=== PATIENT | male | born 1980 | race Caucasian/White ===

== ENCOUNTER 2022-08-16 22:43 | Emergency (ER) | payer MEDICAID, SELFPAY ==
[2022-08-16 22:46] VITALS: BP 117/77; PULSE 115; RESP 13; TEMP 37.1; O2SAT 92
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
[2022-08-16] MEDS: Normal Saline 1,000 ML 1000 ML IV (23:16)
[2022-08-16 23:20] LABS: Abs Immature Grans 0.02 10^3/uL (0.0-0.06); Absolute Basophil Count 0.04 10^3/uL (0.0-0.2); Absolute Eosinophil Count 0.35 10^3/uL (0.0-0.7); Absolute Lymphocyte Count 1.65 10^3/uL (1.2-3.4); Absolute Monocyte Count 0.73 10^3/uL (0.1-0.8); Absolute Neutrophil Count 5.09 10^3/uL (1.2-6.7); Basophils % 0.5; Eosinophils % 4.4; HCT 44.7 % (40.0-50.0); HGB 15.5 g/dL (13.5-17.5); Immature Grans % 0.3; Lymphocytes % 20.9; MCH 30.4 pg (27.0-33.0); MCHC 34.7 % (32.0-36.0); MCV 88 fL (80-95); MPV 9.2 fL (8.0-11.0); Monocytes % 9.3; Neutrophils % 64.6; Platelet Count 234 10^3/uL (130-400); RDW 11.5 % (11.8-14.1); RDW-SD 37.1 fL; WBC 7.88 10^3/uL (4.4-10.8)
[2022-08-16 23:35] LABS: *AMPHETAMINES SCREEN URINE Negative (Negative); *BARBITURATES SCREEN URINE Negative (Negative); *BENZODIAZEPINES SCREEN URINE Negative (Negative); ALT 48 U/L (16-63); AST 109 U/L (15-37); Albumin 3.5 g/dL (3.4-5.0); Alkaline Phosphatase 145 U/L (46-116); Anion Gap 9.9 mmol/L (3-11); BUN 8 mg/dL (7-18); Bilirubin, Total 0.5 mg/dL (0.2-1.0); CO2 23.1 mmol/L (21.0-32.0); Calcium 8.9 mg/dL (8.5-10.1); Cannabinoids THC Negative (Negative); Chloride 105 mmol/L (98-107); Cocaine Screen,Urine Negative (Negative); ETHANOL BLOOD 264.8 mg/dL (<10); Estimated GFR 96.97 (mL/min/1.73m2); Glucose 188 mg/dL (74-106); METHADONE URINE SCREEN Negative (Negative); OPIATES URINE SCREEN Negative (Negative); Potassium 3.4 mmol/L (3.5-5.1); Sodium 138 mmol/L (136-145); Total Protein 7.7 g/dL (6.4-8.2)
[2022-08-16 23:36] LABS: Tricyclic Antidepressants Negative (Negative)
== END 2022-08-17 00:04 | disposition home or self-care (01) ==
PROVIDERS: Emergency Provider Emergency Medicine
DX: F10.129 Alcohol abuse with intoxication, unspecified (principal); Y90.8 Blood alcohol level of 240 mg/100 ml or more
CPT/HCPCS: 80053; 80307; 96360; 99284; 80320; 85025; 99283

== ENCOUNTER 2022-08-17 20:45 | Emergency (ER) | payer MEDICAID, SELFPAY ==
[2022-08-17 21:09] VITALS: BP 171/106; PULSE 70; RESP 18; TEMP 36.7; O2SAT 98
--- NOTE | 2022-08-17 21:50 | ED.GENADUL_ITS ---
Discharge Plan Disposition Patient Disposition: STILL A PATIENT Condition: Stable Discharge Details Chief Complaint: Suicide-Atempt Clinical Impression: Suicidal ideation Primary Care Provider: Unknown,Unknown ED Provider: Jw Barakat Home Meds and New Rx's Prescriptions: No Action risperidone [Risperdal] 1 mg Tablet 1 mg Rx Instructions: uNSURE OF DOSE Medical Decision Making 41 yo male who was seen in the ED last night for alcohol intoxication comes in today with complaint of thoughts of self harm. He hasn't had anything to drink today and states he has not used drugs but states he doesn't feel right in his head and has had thoughts of self harm, denies attempting to harm himself. He has not taken his gabapentin or risperidone in a week or longer per patient. He arrives stable, caox4 with clear speech, normal gait, clinically sober. No focal deficits on exam. He has no findings on his history or exam to suggest underlying medical process to his depression/si, will have mental health evaluate pt evaluated by [facility], is going to be voluntary for psych placement Differential Diagnosis Differential Diagnosis: depression,si Lab Data Lab results reviewed: Yes I reviewed the patient's lab results. HPI General Mode of arrival: ambulatory . Date/Time Provider Initiated Documentation: 08/17/22 20:50 . Limitations to Documentation: no limitations . Information obtained by: patient . History of Present Illness 41 year old M presents to the emergency department with the chief complaint of depression/si, described as moderate, Patient started experiencing this day(s) (1) and it has been constant. No relieving factors improve symptom(s), No exacerbating factors reported . Patient notes denies chest pain, fever/chills and nausea/vomiting. Patient did receive the following treatments prior to arri sarah, none Related Data Home Medications Medication Instructions Recorded Confirmed risperidone 1 mg tablet (Risperdal) 1 mg 08/16/22 Allergies Allergy/AdvReac Type Severity Reaction Status Date / Time No Known Allergies Allergy Unverified 08/16/22 22:54 General Stated Complaint: Suicide-Atempt JENISE: 2 Review of Systems All systems reviewed & are unremarkable except as noted in HPI and below Constitutional Constitutional: Denies chills, Denies fever(s) and Denies weakness Cardiovascular Cardiovascular: Denies chest pain and Denies dyspnea Respiratory Respiratory: Denies cough and Denies dyspnea Gastrointestinal Gastrointestinal: Denies abdominal pain, Denies nausea and Denies vomiting Musculoskeletal Musculoskeletal: Denies joint swelling Integumentary/Breasts Skin/Breast: Denies rash Neurologic Neurologic: Denies weakness PFSH All Active Problems (Updated 08/18/22 @ 00:55 by Jw Barakat MD) Suicidal ideation (Acute) Social History Smoking/Tobacco Use Status: Current every day Tobacco Type: cigarettes Smoking risk assessment performed?: Yes Alcohol Intake: current Alcohol Intake frequency: 3 or more drinks per day Substance use type: does not use Details: Denies Do you feel safe at home: Yes Do you feel safe in your relationship?: Yes Exam Const General: no acute distress Orientation: alert HENMT Head: normal to inspection Ears: external ears normal General nose exam: external nose normal Mouth: moist mucous membranes Eyes General: appearance normal, both eyes and all related structures Neck Neck: normal visual inspection Resp Effort & Inspection: normal respiratory effort and able to speak in complete sentences Cardio Rate: regular rate Skin General skin exam: no rashes or lesions noted Neuro General: patient alert and patient oriented x3 Extrem General: normal to inspection Psych Appearance: well kempt Course Vital Signs Vital signs: Vital Signs Temperature 36.7 C 08/17/22 21:09 Pulse 70 08/17/22 21:09 Respiratory Rate 18 08/17/22 21:09 Blood Pressure 171/106 H 08/17/22 21:09 Pulse Oximetry 98 08/17/22 21:09 Temperature 36.7 C 08/17/22 21:09 Pulse 70 08/17/22 21:09 Respiratory Rate 18 08/17/22 21:09 Respiratory Effort 08/17/22 21:14 Blood Pressure 171/106 H 08/17/22 21:09 Blood Pressure Position Sitting 08/17/22 21:09 Pulse Oximetry 98 08/17/22 21:09 Oxygen Delivery Method Room Air 08/17/22 21:09 Oxygen Flow Rate 0 08/17/22 21:09 Pain Level 0 08/17/22 21:09 PAWSS Have you Been Recently Intoxicated or Drunk Within the Last 30 days?: Yes Have you Ever Experienced Previous Episodes of Alcohol Withdrawal?: No Have you ever Experienced Withdrawal Seizures?: No Have you ever Experienced Delirium Tremens(DT)s?: No Have you ever undergone Alcohol Rehabilitation Treatment (i.e, inpt ot outpatient treatment programs)?: Yes Have you ever Experienced Blackouts?: Yes Have you ever Combined Alcohol with other Downers within the last 90 days?: Yes Have you ever Combined Alcohol with any other Substance of Abuse during the last 90 days?: Yes Positive Blood Alcohol level on Presentation? [PCS.BAL]: Yes Evidence of Increased Autonomic Activity (i.e. HR>120, tremor, sweating, agitation, nausea)?: Yes Result: 7
[2022-08-17 22:09] LABS: Abs Immature Grans 0.02 10^3/uL (0.0-0.06); Absolute Basophil Count 0.05 10^3/uL (0.0-0.2); Absolute Eosinophil Count 0.12 10^3/uL (0.0-0.7); Absolute Lymphocyte Count 1.34 10^3/uL (1.2-3.4); Absolute Neutrophil Count 7.25 10^3/uL (1.2-6.7); Basophils % 0.5; Eosinophils % 1.3; HCT 48.4 % (40.0-50.0); HGB 16.2 g/dL (13.5-17.5); Immature Grans % 0.2; Lymphocytes % 14.3; MCHC 33.5 % (32.0-36.0); MCV 90 fL (80-95); Monocytes % 6.4; Neutrophils % 77.3; Platelet Count 238 10^3/uL (130-400); RDW 11.7 % (11.8-14.1); RDW-SD 38.4 fL; WBC 9.38 10^3/uL (4.4-10.8)
[2022-08-17 22:35] LABS: ALT 39 U/L (16-63); AST 75 U/L (15-37); Alkaline Phosphatase 134 U/L (46-116); Anion Gap 8.2 mmol/L (3-11); BUN 11 mg/dL (7-18); Bilirubin, Total 1.4 mg/dL (0.2-1.0); CO2 28.8 mmol/L (21.0-32.0); CREATININE 0.8 mg/dL (0.70-1.30); Calcium 9.1 mg/dL (8.5-10.1); Chloride 104 mmol/L (98-107); Estimated GFR 114.02 (mL/min/1.73m2); Glucose 98 mg/dL (74-106); Potassium 3.3 mmol/L (3.5-5.1); Sodium 141 mmol/L (136-145); TSH (W/Ref FT4) 2.46 uIU/mL (0.36-3.74); Total Protein 8.5 g/dL (6.4-8.2)
[2022-08-17] MEDS: diazePAM 5 MG TAB PO (22:41)
[2022-08-17 22:47] LABS: Salicylate < 2.8 mg/dL (<2.8)
[2022-08-17 22:49] LABS: Acetaminophen < 2 ug/mL (10-30)
[2022-08-17 22:53] LABS: ETHANOL BLOOD < 3.0 mg/dL (<10)
[2022-08-18] VITALS (8 sets, daily range): BP systolic 133–155; BP diastolic 68–88; PULSE 73–89; RESP 17–20; TEMP 36.4–37.3; O2SAT 92–100
[2022-08-18] MEDS: Ibuprofen 600 MG TAB PO ×2 (01:25→12:16)
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
[2022-08-18] MEDS: diazePAM 5 MG TAB PO (07:59)
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
[2022-08-18 10:55] LABS: Bilirubin Negative (Negative); Blood Negative (Negative); Clarity Clear (Clear); Glucose Negative (Negative); Ketones Negative (Negative); Leukocyte Esterase Negative (Negative); Nitrite Negative (Negative); Specific Gravity 1.025 (1.005-1.025); Urobilinogen 0.2 EU/dL (Up TO 0.2)
[2022-08-18 11:07] LABS: *AMPHETAMINES SCREEN URINE Negative (Negative); *BARBITURATES SCREEN URINE Negative (Negative); *BENZODIAZEPINES SCREEN URINE Positive (Negative); Cannabinoids THC Negative (Negative); Cocaine Screen,Urine Negative (Negative); METHADONE URINE SCREEN Negative (Negative); OPIATES URINE SCREEN Negative (Negative)
[2022-08-18 11:08] LABS: Tricyclic Antidepressants Negative (Negative)
--- NOTE | 2022-08-18 11:59 | NUR.NOTE ---
called the pharmacies in [place] that the patient told the Nurse prescriptions have been picked up at and they are going to send an updated list of current medications. The pharmacy tells me that the last rx was picked up in May with a 30 day supply. [facility]ITA
--- NOTE | 2022-08-18 14:10 | PDOC.CMSAFED ---
- If Service Date Differs Date of service: 08/18/22 Time of Service: 14:10 Care Management Safety Plan Status: Voluntary - Reason for Wait Reason for Wait: Inpatient Admission VOLUNTARY FOR INPATIENT PSYCHIATRIC STABILIZATION. Patient is appropriate in all interactions since arriving at [facility]; Pt has demonstrated appropriate coping and communication skills, has articulated his or her needs and concerns and is fully engaged during staff interactions. Per [facility] documentation: Radha moved to [place] from [place] approximately a month ago, following his girlfriend who moved here to get clean and has not been successful, and in the last 6 days he has not taken any of his medications including gabapentin, Risperdal or BuSpar. Client, in addition, drinks 30-40 beers a day. He reported that he believes he is going through detox as he has not drank anything since 12am on 08.17.2022. Per MD: He has a reported history of alcohol withdrawal seizures. Recheck vitals note a normal heart rate and blood pressure. Patient appears anxious. He was given Valium 2 hours ago for feelings of anxiety. CIWA protocol initiated. Will continue to monitor for signs of withdrawal. 1200 --nurse was able to contact patient's pharmacy in [place] and he has not filled any of his medications in the last 30 days. PMH significant for GALILEO: alcohol use disorder, anxiety, depression, PTSD Referral to [facility] for support with [place] Medicaid. Safety plan has been established with patient, and care team, to adhere to patient goals, identify restrictions based on behavioral status, address nutrition, and determine allowed personal belongings, tools for hygiene and personal care. Determine level of activity including ambulation, level of supervision, visitors, and determine privileges based on behaviors and level of engagement by pt. SAFETY PLAN: 1. Will remain on suicide precautions. In Paper Clothes 2. Will remain in room under direct supervision of one-on-one staff at all times provided by [employer]; REGINA, MACHINE SETTER AND REPAIRER residence supervisor. 3. May have paper cups, plates, finger foods as well as a cardboard spoon with which to eat meals. 4. Follow [facility] Management of the Admitted Behavioral Health Patient policy. 5. Comfort bath system, shower permitted with escort at RN discretion. 6. Personal belongings-soft items permitted at RN discretion. 7. Visitors-none at this time. 8. Activities: soft cart items approved per RN discretion. 9. Bathroom privileges with escort in the ED, available in room without limitation on M/S. 10. Phone: contact via cordless phone at RN discretion. 11. Due to VOLUNTARY status, if patient wishes to leave [facility], staff will contact [facility] Crisis Screener ([phone]) and On-Call Car Ferrier ([phone]) as soon as possible. In the event of elopement, notify [facility] Police ([phone]). Patient is currently voluntarily at [facility] and seeking inpatient admission when a bed becomes available. [facility] Frontline Chief Embalmer will continue seeking placement. Please contact the Call Center Coordinator Car Ferrier ([phone]) and [facility] Chief Embalmer ([phone]) for any needed changes in the Safety Plan. Safety plan has been provided to interdepartmental care team.
[2022-08-18] MEDS: Gabapentin 400 MG CAP 800 MG PO ×2 (15:46→19:44)
[2022-08-18] MEDS: risperiDONE 0.5 MG TAB PO ×2 (15:47→19:44)
[2022-08-18] MEDS: diazePAM 5 MG TAB (17:02)
--- NOTE | 2022-08-18 17:04 | NUR.NOTE ---
patient has increased agitation. He told this nurse that he feels very itchy like there are bugs crawling on him and he sees bugs on the bedside table. he explained that he knows the bugs are not there but his mind is playing tricks he asked [employer] to move the side table away from him as he thought he might throw the cups across the room. CPSO gave patient a soft ball to squeeze and is having a conversation with patient at this time.
[2022-08-18] MEDS: Omeprazole 20 MG CAPCR 40 MG PO (19:13)
[2022-08-19] VITALS (7 sets, daily range): BP systolic 126–155; BP diastolic 78–89; PULSE 76–89; RESP 16–20; TEMP 36.4–37; O2SAT 96–100
[2022-08-19] MEDS: diazePAM 5 MG TAB PO ×4 (03:23→17:55)
[2022-08-19] MEDS: Potassium Chloride 20 MEQ TABCR PO (03:23)
[2022-08-19] MEDS: cloNIDine 0.1 MG TAB PO ×3 (04:24→18:48)
--- NOTE | 2022-08-19 04:39 | W.EDPROG ---
Date of service: 08/19/22 Time of Service: 04:39 Medical Decision Making Patient was signed out by Dr. Joseph at 11:30 PM. Plan at signout was to await availability for inpatient psychiatric treatment. Patient is here voluntarily. 4:42 -- At approximately 3:30 AM patient became agitated noting he was having bad dreams. Patient requested Valium. He was assessed and was not exhibiting signs of signficant alcohol withdrawal. Last Valium dose was 5 PM yesterday per nursing. I will give Valium 5 mg p.o. 630 -- Patient had further agitation and RN requested another dose of valium 5mg be ordered. RN notes not signs of etoh withdrawal. 732 -- Patient resting comfortably. Sign Out Sign Out Data: Sign Out Comment: SI, voluntary Last updated by Jw Barakat MD at 08/18/22 00:55 Sign Out Comment: Voluntary. Awaiting placement. History of heavy alcohol abuse. No current signs of alcohol withdrawal but continue to monitor. Last updated by Edita Rodgers DO at 08/18/22 14:38 Sign Out Comment: Patient stable. He did feel that he was having, and he was given oral Valium. No other interventions needed. Last updated by Jarod Joseph DO at 08/18/22 22:50 Discharge Plan Disposition Patient Disposition: STILL A PATIENT Condition: Stable Discharge Details Clinical Impression: Suicidal ideation, History of alcohol abuse Primary Care Provider: Unknown,Unknown ED Provider: Rojas Coleman Home Meds and New Rx's Prescriptions: No Action risperidone [Risperdal] 1 mg Tablet 0.5 mg PO BID clonidine HCl 0.1 mg Tablet 0.1 mg PO TID PRN (Reason: Anxiety) gabapentin 400 mg Capsule 800 mg PO TID omeprazole 40 mg Capsule,Delayed Release(Dr/Ec) 40 mg PO DAILY
[2022-08-19] MEDS: Omeprazole 20 MG CAPCR 40 MG PO (07:13)
[2022-08-19] MEDS: risperiDONE 0.5 MG TAB PO ×2 (08:41→18:48)
[2022-08-19] MEDS: Gabapentin 400 MG CAP 800 MG PO ×3 (08:41→18:48)
--- NOTE | 2022-08-19 17:59 | CMSP_ITS ---
- If Service Date Differs Date of service: 08/19/22 Time of Service: 18:00 Care Management Safety Plan Status: Voluntary - Reason for Wait Reason for Wait: Inpatient Admission Per [facility] documentation: Radha moved to [place] from [place] approximately a month ago, following his girlfriend who moved here to get clean and has not been successful, and in the last 6 days he has not taken any of his medications including gabapentin, Risperdal or BuSpar. Client, in addition, drinks 30-40 beers a day. He reported that he believes he is going through detox as he has not drank anything since 12am on 08.17.2022. Per MD: He has a reported history of alcohol withdrawal seizures. Recheck vitals note a normal heart rate and blood pressure. Patient appears anxious. He was given Valium 2 hours ago for feelings of anxiety. CIWA protocol initiated. Will continue to monitor for signs of withdrawal. PMH significant for GALILEO: alcohol use disorder, anxiety, depression, PTSD Referral to [facility] for support with [place] Medicaid. Safety plan has been established with patient, and care team, to adhere to patient goals, identify restrictions based on behavioral status, address nutrition, and determine allowed personal belongings, tools for hygiene and personal care. Determine level of activity including ambulation, level of supervision, visitors, and determine privileges based on behaviors and level of engagement by pt. SAFETY PLAN: 1. Will remain on suicide precautions. In Paper Clothes 2. Will remain in room under direct supervision of one-on-one staff at all times provided by [employer]; REGINA, EVP GLOBAL PRODUCT LEADERSHIP sorting machine operator. 3. May have paper cups, plates, finger foods as well as a cardboard spoon with which to eat meals. 4. Follow [facility] Management of the Admitted Behavioral Health Patient policy. 5. Comfort bath system, shower permitted with escort at RN discretion. 6. Personal belongings-soft items permitted at RN discretion. 7. Visitors-none at this time. 8. Activities: soft cart items approved per RN discretion. 9. Bathroom privileges with escort in the ED, available in room without limitation on M/S. 10. Phone: contact via cordless phone at RN discretion. Do not allow contact with Heri Wood). 11. Due to VOLUNTARY status, if patient wishes to leave [facility], staff will contact [facility] Crisis Screener ([phone]) and On-Call Chair Installer ([phone]) as soon as possible. In the event of elopement, notify [facility] Police ([phone]). Patient is currently voluntarily at [facility] and seeking inpatient admission when a bed becomes available. [facility] Frontline Vulcanizer will continue seeking placement. Please contact the Math Specialist Chair Installer ([phone]) and [facility] Vulcanizer ([phone]) for any needed changes in the Safety Plan. Safety plan has been provided to interdepartmental care team.
[2022-08-20 01:00] VITALS: BP 124/83; PULSE 89; RESP 18; TEMP 36.8; O2SAT 100
[2022-08-20 03:03] VITALS: BP 126/80; PULSE 86; RESP 18; O2SAT 100
[2022-08-20] MEDS: diazePAM 5 MG TAB PO ×3 (04:10→19:17)
[2022-08-20] MEDS: Magic Mouthwash 119 ML BTL MM (06:54)
[2022-08-20] MEDS: Omeprazole 20 MG CAPCR 40 MG PO (07:21)
--- NOTE | 2022-08-20 08:30 | NUR.NOTE ---
Nursing Note: warehouse team leader went through a bag someone dropped off for patient; meds in the bag were brought to the pharmacy, clothes are labeled and put in the dirty utility room.
--- NOTE | 2022-08-20 08:32 | CMSP_ITS ---
- If Service Date Differs Date of service: 08/20/22 Time of Service: 08:32 Care Management Safety Plan Status: Voluntary - Reason for Wait Reason for Wait: Inpatient Admission Per [facility] documentation: Radha moved to [place] from [place] approximately a month ago, following his girlfriend who moved here to get clean and has not been successful, and in the last 6 days he has not taken any of his medications including gabapentin, Risperdal or BuSpar. Client, in addition, drinks 30-40 beers a day. He reported that he believes he is going through detox as he has not had alcohol since 12am on 08.17.2022. Per MD: He has a reported history of alcohol withdrawal seizures. CIWA protocol initiated. Will continue to monitor for signs of withdrawal. PMH significant for GALILEO: alcohol use disorder, anxiety, depression, PTSD Referral to [facility] for support with [place] Medicaid. Safety plan has been established with patient, and care team, to adhere to patient goals, identify restrictions based on behavioral status, address nutrition, and determine allowed personal belongings, tools for hygiene and personal care. Determine level of activity including ambulation, level of supervision, visitors, and determine privileges based on behaviors and level of engagement by pt. SAFETY PLAN: 1. Will remain on suicide precautions. In Paper Clothes 2. Will remain in room under direct supervision of one-on-one staff at all times provided by [employer]; REGINA, MARKETING RESEARCH ANALYST floor technician. 3. May have paper cups, plates, finger foods as well as a cardboard spoon with which to eat meals. 4. Follow [facility] Management of the Admitted Behavioral Health Patient policy. 5. Comfort bath system, shower permitted with escort at RN discretion. 6. Personal belongings-soft items permitted at RN discretion. 7. Visitors-none at this time. 8. Activities: soft cart items approved per RN discretion. 9. Bathroom privileges with escort in the ED, available in room without limitation on M/S. 10. Phone: contact via cordless phone at RN discretion. Do not allow contact with Heri Wood). 11. Due to VOLUNTARY status, if patient wishes to leave [facility], staff will contact [facility] Crisis Screener ([phone]) and On-Call Rug Cutter Helper ([phone]) as soon as possible. In the event of elopement, notify [facility] Police ([phone]). Patient is currently voluntarily at [facility] and seeking inpatient admission when a bed becomes available. [facility] Frontline Associate Software Application Engineer will continue seeking placement. Please contact the Senior Procurement Manager Rug Cutter Helper ([phone]) and [facility] Associate Software Application Engineer ([phone]) for any needed changes in the Safety Plan. Safety plan has been provided to interdepartmental care team.
[2022-08-20] MEDS: Gabapentin 800 MG TAB PO ×3 (08:56→21:58)
[2022-08-20] MEDS: risperiDONE 0.5 MG TAB PO ×2 (08:56→21:58)
--- NOTE | 2022-08-20 10:31 | NUR.NOTE ---
Addendum entered by Makayla Box 08/20/22 10:59: Patient returned without incident Original Note: Nursing Note: Up to Med Surg for a shower by wheelchair. Escorted by Security and [employer].
[2022-08-20] MEDS: cloNIDine 0.1 MG TAB PO ×2 (14:50→21:57)
[2022-08-20] MEDS: Ondansetron O.D.T. 4 MG TABEF (14:51)
[2022-08-20] MEDS: Famotidine 20 MG TAB (18:45)
[2022-08-20] MEDS: Famotidine 20 MG TAB PO (19:18)
[2022-08-20 19:42] VITALS: BP 128/73; PULSE 90; RESP 19; TEMP 36.6; O2SAT 94
[2022-08-20 20:47] LABS: Source Nasal/Nares
[2022-08-20 21:17] LABS: COVID-19 PCR Negative (Negative)
[2022-08-20] MEDS: diphenhydrAMINE 25 MG CAP 50 MG PO (21:57)
[2022-08-21] MEDS: diazePAM 5 MG TAB PO ×2 (02:00→09:52)
[2022-08-21 03:06] VITALS: BP 126/89; PULSE 68; RESP 18; TEMP 36.8; O2SAT 100
[2022-08-21] MEDS: Magic Mouthwash 119 ML BTL MM ×2 (06:50→22:12)
[2022-08-21] MEDS: Omeprazole 20 MG CAPCR 40 MG PO (07:20)
[2022-08-21] MEDS: Ibuprofen 800 MG TAB (07:20)
--- NOTE | 2022-08-21 07:45 | W.EDPROG ---
Date of service: 08/21/22 Time of Service: 07:45 Medical Decision Making Patient signed out to me by Dr. Buchanan at time of shift change with inpatient placement pending. Medical Records Medical records reviewed: Yes I reviewed the patient's medical records. Sign Out Sign Out Data: Sign Out Comment: SI, voluntary Last updated by Jw Barakat MD at 08/18/22 00:55 Sign Out Comment: Stable throughout shift. No significant interventions needed. Last updated by Jarod Joseph DO at 08/21/22 22:29 Sign Out Comment: VOluntary, awaits placement Last updated by Yobany Buchanan MD at 08/22/22 07:57 Sign Out Comment: Voluntary. Awaiting placement. History of heavy alcohol abuse. No current signs of alcohol withdrawal but continue to monitor. Last updated by Edita Rodgers DO at 08/18/22 14:38 Sign Out Comment: Patient stable. He did feel that he was having, and he was given oral Valium. No other interventions needed. Last updated by Jarod Joseph DO at 08/18/22 22:50 Sign Out Comment: Patient has no agitation overnight and was treated with Valium 5 mg x 2 with relief. Last updated by Rojas Coleman MD at 08/19/22 07:35 Sign Out Comment: SI, voluntary, awaiting placement Last updated by Daniel Beck MD at 08/19/22 20:20 Sign Out Comment: No change overnight Last updated by Yobany Buchanan MD at 08/20/22 07:27 Sign Out Comment: SI, anxiety, voluntary, awaiting placement Last updated by Daniel Beck MD at 08/20/22 19:26 Sign Out Comment: SI, Anxiety, Voluntary. No change overnight Last updated by Yobany Buchanan MD at 08/21/22 06:54 Sign Out Comment: Patient signed out to Dr. Joseph at time of shift change pending inpatient placement Last updated by Akanksha Coleman MD at 08/21/22 15:40 Discharge Plan Disposition Patient Disposition: [facility] Condition: Stable Discharge Details Clinical Impression: Suicidal ideation, History of alcohol abuse ED Provider: Jw Barakat Home Meds and New Rx's Prescriptions: No Action risperidone [Risperdal] 1 mg Tablet 0.5 mg PO BID clonidine HCl 0.1 mg Tablet 0.1 mg PO TID PRN (Reason: Anxiety) gabapentin 400 mg Capsule 800 mg PO TID omeprazole 40 mg Capsule,Delayed Release(Dr/Ec) 40 mg PO DAILY Discharge Data Discharge Date/Time-TO BE ENTERED AT DEPARTURE: 08/22/22 17:29
[2022-08-21] MEDS: risperiDONE 0.5 MG TAB PO ×2 (08:23→23:14)
[2022-08-21] MEDS: Gabapentin 800 MG TAB PO ×3 (08:23→23:13)
[2022-08-21] MEDS: Ondansetron O.D.T. 4 MG TABEF PO (12:14)
--- NOTE | 2022-08-21 13:38 | MHPN_ITS ---
Date of service: 08/21/22 Time of Service: 11:00 Mental Health Emergency Note Release [facility] release signed:: Yes Reason for Visit Radha is unknown to [facility] previous to last week on 08/18. Radha has been at the [facility] ([facility]) for 4 days on a voluntary basis in the emergency room. He arrived on 08/18 endorsing suicidal ideations with intent and plan. Client self-reports that he is diagnosed with a rage disorder, bipolar, and manic depression. He stated that he was also previously diagnosed with schizophrenia, bipolar and ADD (or ADHD, was unsure). Client states that his mental health was previously treated by a psychiatrist in [place], however, is unsure of the name or place. Client states that he did not follow-through with services as he was drinking an excessive amount of alcohol daily. Client is seen today for daily re-assessment. In the last 2 weeks has the pt presented for ES prior to today?: No Client Information Client is: Adult Outpatient Well Housed: No,status: Not homeless, Unstable housing Non Suicidal Self Injury Current: No History: No Safety Risk/Harm to Self or Others Current Ideation to Harm Self or Others: Yes to self. (Client self reports that he would by suicide via jumping in front of an [address] if he were to leave the hospital. Client rates intent 07/31 if he were to leave the hospital. ) Intent: yes, has intent. Plan: yes,has a plan. History of suicide attempt: No history of suicide attempt reported and to others. (Client reports that he has thoughts all of the time on how he could hurt others, however states that he does not intend to act on his thoughts. ) Intent: No Plan: no, does not have a plan. History of becoming violent with another person(any age): yes,history of violence with others. Experienced legal problems due to harming another person: Yes Risk: Does risk to harm exist?: yes. Risk: Severe Duty to warn indicated: No Asssessment/Mental Status Appearance: Unremarkable Attitude: Cooperative (At times throughout assessment client is observed to become agitated and at other times is cooperative with assessment answering questions that are asked of him. ), Demanding and Hostile Behavior: Hyperactivity and Agitated Speech: Pressured (Client presented with pressured speech, however was redirect able. ) Affect: Blunted Mood: Elevated, Anxious and Irritable Thought process: Flight of ideas and Tangential Hallucinations: yes, ( Client reports that he is hearing voices of people calling his name behind his bed and reports that this is due to him giving him SS # to 7 people since being at the hospital. Client also reports that he is seeing bugs crawling on him and his bed. ) Visual and Auditory Delusions: yes, ( Client thinks that the government is scamming him and stealing his identify. Client also states the government is trying to do a federal investigation on him. ) Bizarre Attention: Unremarkable Perception: Not impaired Orientation: Fully orientated Memory: Intact Insight: Poor Judgement: Poor Neurovegetative Symptoms Sleep: Decrease (Client reports interrupted sleep and reports that he has been dreaming about alcohol. ) Appetitie: Increase (Client reports increased appetite due to withdrawal from alcohol.) Interests: No change Energy: No change Libido: No change Substance Use: ETOH dependence (Client reports prior to admission drinking 30-40 beers and a 1/5th of liquor daily. ) Do you use nicotine?: Yes Have you used substances in the last 7 days?: yes, Client reports drinking alcohol daily prior to coming to the ED. Additional Issues: Assaultive/Threatening Behavior: No Medical Concerns: No Client engaged in active self harm w/weapon: No Threatening to run away: No Child reported abuse/neglect: No Voluntarily presenting for services: Yes Domestic violence is a concern: No Extreme Psychosis or extreme behavior is present: No Impression Client is a 41 year old single, male who moved to [place] from [place] a month ago to be with his girlfriend, at the time, as she had planned to get sober. Client presented to [facility] emergency room three days ago and per client's report, a friend brought him in after the friend learned client was about to carry out his plan to by suicide. Currently, he is expressing a desire to receive treatment for alcohol and mental health issues. Radha presents with symptoms most congruent with major depressive disorder as evidenced by self report. Radha feels hopeless and discouraged on a daily basis. Client has increased appetite due to withdrawal of alcohol and decrease in sleep, reporting that he has been having vivid dreams of alcohol. Client appears to be struggling with persistent verbalized thoughts of homicide and suicide. However, states that he would not act on the thoughts in the hospital., Client would benefit from in-patient treatment in a co-occurring bed to address homicidal and suicidal ideations as well as significant alcohol abuse. Plan/Disposition Recommended Disposition: Hospitalization facilities contacted. Plan: Client will remain at [facility] ED on a voluntary basis pending admission to an in- patient facility. Referrals have been faxed to [facility], [facility], [facility], and [facility]. [facility], [facility], [facility] are at capacity today. [facility] declined due to client?s acuity level. Client will be reassessed daily by [facility] ES until placement is secured. Due to client?s withdrawal symptoms, client has been placed on CIWA per cautions at [facility]. Medicaid paperwork completed and approved by [employer], however, message was left for [facility] to get Medicaid number and no return call as of end of day. Client expressed interest and willingness to complete and submit paperwork for food stamps, housing, and social security benefits. He is interested in living in [place]. 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 In house referral for case management as well as therapy will be made by this bond underwriter. Person reported agreement to plan: Yes Facilities contacted if Applicable [facility] Not accepted, No bed available [facility] Not accepted, No bed available [facility] Not accepted, Only accepting in house referrals, [facility] Not accepted, Acuity Reports/communication Outcome discussed with: ED/Personnel (Verbal passover given to [facility] personal care worker Leeann. ) Final Disposition/Discharge Transportation Checklist completed and faxed: No
--- NOTE | 2022-08-21 14:30 | NUR.NOTE ---
Nursing Note: Patient requested his legal paperwork in his personal shorts, care management notified, care management spoke with patient and retrieved his paperwork. Patient requesting vitamin D, and multivitamins, and to see MD; MD notified by care management. Patient spoke with BEATRICE inperson and via videochat.
[2022-08-21] MEDS: cloNIDine 0.1 MG TAB PO ×2 (14:53→23:13)
[2022-08-21] MEDS: diazePAM 5 MG TAB 10 MG PO (18:44)
[2022-08-21 20:35] VITALS: BP 147/74; PULSE 88; TEMP 36.4; O2SAT 98
[2022-08-21] MEDS: diphenhydrAMINE 25 MG CAP 50 MG PO (23:14)
[2022-08-22] MEDS: Omeprazole 20 MG CAPCR 40 MG PO (07:20)
[2022-08-22 08:21] VITALS: BP 122/79; PULSE 105; RESP 19; TEMP 36.6; O2SAT 94
--- NOTE | 2022-08-22 08:30 | W.EDPROG ---
Date of service: 08/22/22 Time of Service: 08:30 Medical Decision Making pt signed out to me no issues overnight per report, still seeking voluntary placement for si/depression Sign Out Sign Out Data: Sign Out Comment: SI, voluntary Last updated by Jw Barakat MD at 08/18/22 00:55 Sign Out Comment: Stable throughout shift. No significant interventions needed. Last updated by Jarod Joseph DO at 08/21/22 22:29 Sign Out Comment: VOluntary, awaits placement Last updated by Yobany Buchanan MD at 08/22/22 07:57 Sign Out Comment: Voluntary. Awaiting placement. History of heavy alcohol abuse. No current signs of alcohol withdrawal but continue to monitor. Last updated by Edita Rodgers DO at 08/18/22 14:38 Sign Out Comment: Patient stable. He did feel that he was having, and he was given oral Valium. No other interventions needed. Last updated by Jarod Joseph DO at 08/18/22 22:50 Sign Out Comment: Patient has no agitation overnight and was treated with Valium 5 mg x 2 with relief. Last updated by Rojas Coleman MD at 08/19/22 07:35 Sign Out Comment: SI, voluntary, awaiting placement Last updated by Daniel Beck MD at 08/19/22 20:20 Sign Out Comment: No change overnight Last updated by Yobany Buchanan MD at 08/20/22 07:27 Sign Out Comment: SI, anxiety, voluntary, awaiting placement Last updated by Daniel Beck MD at 08/20/22 19:26 Sign Out Comment: SI, Anxiety, Voluntary. No change overnight Last updated by Yobany Buchanan MD at 08/21/22 06:54 Sign Out Comment: Patient signed out to Dr. Joseph at time of shift change pending inpatient placement Last updated by Akanksha Coleman MD at 08/21/22 15:40 Discharge Plan Disposition Patient Disposition: STILL A PATIENT Condition: Stable Discharge Details Clinical Impression: Suicidal ideation, History of alcohol abuse Primary Care Provider: Unknown,Unknown ED Provider: Jw Barakat Home Meds and New Rx's Prescriptions: No Action risperidone [Risperdal] 1 mg Tablet 0.5 mg PO BID clonidine HCl 0.1 mg Tablet 0.1 mg PO TID PRN (Reason: Anxiety) gabapentin 400 mg Capsule 800 mg PO TID omeprazole 40 mg Capsule,Delayed Release(Dr/Ec) 40 mg PO DAILY
[2022-08-22] MEDS: Multivitamin TAB 1 TAB PO (09:05)
[2022-08-22] MEDS: Gabapentin 800 MG TAB PO ×2 (09:05→13:28)
[2022-08-22] MEDS: risperiDONE 0.5 MG TAB PO (09:06)
[2022-08-22] MEDS: Magic Mouthwash 119 ML BTL MM (09:06)
--- NOTE | 2022-08-22 11:15 | W.EDPROG ---
Date of service: 08/22/22 Time of Service: 11:15 Medical Decision Making pt accepted at [facility], accepting provider is Dr. Segovia Sign Out Sign Out Data: Sign Out Comment: SI, voluntary Last updated by Jw Barakat MD at 08/18/22 00:55 Sign Out Comment: Stable throughout shift. No significant interventions needed. Last updated by Jarod Joseph DO at 08/21/22 22:29 Sign Out Comment: VOluntary, awaits placement Last updated by Yobany Buchanan MD at 08/22/22 07:57 Sign Out Comment: Voluntary. Awaiting placement. History of heavy alcohol abuse. No current signs of alcohol withdrawal but continue to monitor. Last updated by Edita Rodgers DO at 08/18/22 14:38 Sign Out Comment: Patient stable. He did feel that he was having, and he was given oral Valium. No other interventions needed. Last updated by Jarod Joseph DO at 08/18/22 22:50 Sign Out Comment: Patient has no agitation overnight and was treated with Valium 5 mg x 2 with relief. Last updated by Rojas Coleman MD at 08/19/22 07:35 Sign Out Comment: SI, voluntary, awaiting placement Last updated by Daniel Beck MD at 08/19/22 20:20 Sign Out Comment: No change overnight Last updated by Yobany Buchanan MD at 08/20/22 07:27 Sign Out Comment: SI, anxiety, voluntary, awaiting placement Last updated by Daniel Beck MD at 08/20/22 19:26 Sign Out Comment: SI, Anxiety, Voluntary. No change overnight Last updated by Yobany Buchanan MD at 08/21/22 06:54 Sign Out Comment: Patient signed out to Dr. Joseph at time of shift change pending inpatient placement Last updated by Akanksha Coleman MD at 08/21/22 15:40 Discharge Plan Disposition Patient Disposition: [facility] Condition: Stable Discharge Details Clinical Impression: Suicidal ideation, History of alcohol abuse Primary Care Provider: Unknown,Unknown ED Provider: Jw Barakat Home Meds and New Rx's Prescriptions: No Action risperidone [Risperdal] 1 mg Tablet 0.5 mg PO BID clonidine HCl 0.1 mg Tablet 0.1 mg PO TID PRN (Reason: Anxiety) gabapentin 400 mg Capsule 800 mg PO TID omeprazole 40 mg Capsule,Delayed Release(Dr/Ec) 40 mg PO DAILY
[2022-08-22] MEDS: diazePAM 5 MG TAB PO ×2 (11:22→17:20)
[2022-08-22] MEDS: cloNIDine 0.1 MG TAB PO (13:28)
--- NOTE | 2022-08-22 14:10 | CMSP_ITS ---
- If Service Date Differs Date of service: 08/22/22 Time of Service: 09:00 Care Management Safety Plan Status: Voluntary - Reason for Wait Reason for Wait: Inpatient Admission Per [facility] documentation: Radha moved to [place] from [place] approximately a month ago, following his girlfriend who moved here to get clean and has not been successful, and in the last 6 days he has not taken any of his medications including gabapentin, Risperdal or BuSpar. Client, in addition, drinks 30-40 beers a day. He reported that he believes he is going through detox as he has not had alcohol since 12am on 08.17.2022. Per MD: He has a reported history of alcohol withdrawal seizures. CIWA protocol initiated. Will continue to monitor for signs of withdrawal. PMH significant for GALILEO: alcohol use disorder, anxiety, depression, PTSD No change in plan. Safety plan has been established with patient, and care team, to adhere to patient goals, identify restrictions based on behavioral status, address nutrition, and determine allowed personal belongings, tools for hygiene and personal care. Determine level of activity including ambulation, level of supervision, visitors, and determine privileges based on behaviors and level of engagement by pt. SAFETY PLAN: 1. Will remain on suicide precautions. In Paper Clothes 2. Will remain in room under direct supervision of one-on-one staff at all times provided by CPSO, REGINA, CLEAN RICE GRADER AND REEL TENDER supervisor contingents. 3. May have paper cups, plates, finger foods as well as a cardboard spoon with which to eat meals. 4. Follow [facility] Management of the Admitted Behavioral Health Patient policy. 5. Comfort bath system, shower permitted with escort at RN discretion. 6. Personal belongings-soft items permitted at RN discretion. 7. Visitors-none at this time. 8. Activities: soft cart items approved per RN discretion. 9. Bathroom privileges with escort in the ED, available in room without limitation on M/S. 10. Phone: contact via cordless phone at RN discretion. Do not allow contact with Heri Wood). 11. Due to VOLUNTARY status, if patient wishes to leave [facility], staff will contact [facility] Crisis Screener ([phone]) and On-Call Hip Hop Dance Instructor ([phone]) as soon as possible. In the event of elopement, notify [facility] Police ([phone]). Patient is currently voluntarily at [facility] and seeking inpatient admission when a bed becomes available. [facility] Frontline Tow Truck Dispatcher will continue seeking placement. Please contact the [employer] Liaison Officer Hip Hop Dance Instructor ([phone]) and [facility] Tow Truck Dispatcher ([phone]) for any needed changes in the Safety Plan. Safety plan has been provided to interdepartmental care team.
--- NOTE | 2022-08-22 14:13 | CMPROGNOTE_ITS ---
- If Service Date Differs Date of service: 08/22/22 Time of Service: 14:13 Care Management Progress Note S/O: Radha is sitting on the side of the bed when CM comes to meet with him. He easily engages in conversation but makes little eye contact and is fidgety. He reports feeling anxious and shares that he has a lot of thoughts that are disturbing to him. He does not elaborate on those thoughts and CM does not inquire about them as he is visibly becoming more anxious and slightly irritabl eConsuelo Garcia is advised that he will be going to [facility] at some point this afternoon. He states he feels like there is some kind of goverment conspiracy going on that involves [facility] because we are transferring him to another hospital. CM spends some time explaining that [facility] does not have a psychiatric unit, so patients seeking a psych placement have to be transferred to psych hospitals to obtain the help they need. CM validates his feelings and praises him for voluntarily seeking assistance. A: Radha is a 41 year old male who presents in the ED on 08/17/22 seeking a voluntary psychiatric placement. P: Radha is accepted for a voluntary admission by the [facility]. He will follow up with community providers and his plan of care as instructed upon his discharge from the [place]. Transport to [place] is provided by the [facility], coordinated by [facility]. - Status Status: Voluntary - Reason for Wait Reason for Wait: Inpatient Admission ([facility])
== END 2022-08-22 17:29 | disposition short-term general hospital (02) ==
PROVIDERS: Emergency Medicine; Emergency Provider Emergency Medicine
DX: F32.A Depression, unspecified (principal); R45.851 Suicidal ideations; I10 Essential (primary) hypertension; Z79.899 Other long term (current) drug therapy; Z91.14 Patient's other noncompliance with medication regimen; F10.10 Alcohol abuse, uncomplicated
CPT/HCPCS: 36415; 80053; 80307; 87635; 99285; H0046; 80320; 80329; 81003; 84443; 85025

== ENCOUNTER 2022-09-01 20:02 | Emergency (ER) | payer SELFPAY ==
--- NOTE | 2022-09-01 20:19 | ED.GENADUL_ITS ---
Discharge Plan Disposition Patient Disposition: [facility] Condition: Stable Discharge Details Clinical Impression: Violent behavior Primary Care Provider: Unknown,Unknown ED Provider: Daniel Beck Home Meds and New Rx's Prescriptions: No Action risperidone [Risperdal] 1 mg Tablet 0.5 mg PO BID clonidine HCl 0.1 mg Tablet 0.1 mg PO TID PRN (Reason: Anxiety) gabapentin 400 mg Capsule 800 mg PO TID omeprazole 40 mg Capsule,Delayed Release(Dr/Ec) 40 mg PO DAILY Medical Decision Making 41-year-old male history of substance abuse and depression presents likely intoxicated after being discharged from [facility] earlier today for being too aggressive per [facility] human services, patient endorsing suicidal and homicidal thoughts, patient extremely verbally and physically aggressive towards staff holding a pen to his neck and brandishing pens at staff, punching hospital property and threatening to harm and kill staff. Patient was told to sit in the chair in the [facility] police were joana led, patient taken into custody. HPI General Date/Time Provider Initiated Documentation: 09/01/22 20:09 . HPI Narrative: 41-year-old male history of substance abuse and depression, presents endorsing relapsing today and feeling suicidal and homicidal. Patient screaming at staff punching hospital property and threatening to kill staff. Collateral information from [facility] obtained which suggest that patient was discharged from [facility] today for being too violent. Related Data Home Medications Medication Instructions Recorded Confirmed risperidone 1 mg tablet (Risperdal) 0.5 mg PO BID 08/16/22 08/18/22 clonidine HCl 0.1 mg tablet 0.1 mg PO TID PRN Anxiety 08/18/22 08/18/22 gabapentin 400 mg capsule 800 mg PO TID 08/18/22 08/18/22 omeprazole 40 mg capsule,delayed 40 mg PO DAILY 08/18/22 08/18/22 release Allergies Allergy/AdvReac Type Severity Reaction Status Date / Time No Known Allergies Allergy Unverified 08/16/22 22:54 General JENISE: 2 Review of Systems Narrative: Review of Systems Constitutional: negative Eyes: negative ENT: negative Cardiovascular: negative Respiratory: negative Gastrointestinal: negative : negative Musculoskeletal: negative Skin: negative Neurologic: negative Psych: Aggression PFSH All Active Problems (Updated 09/01/22 @ 20:38 by Daniel Beck MD) History of alcohol abuse (Acute) Violent behavior (Acute) Suicidal ideation (Acute) Medical History (Updated 09/01/22 @ 20:38 by Daniel Beck MD) Alcohol abuse Anxiety Chronic back pain Depression PTSD (post-traumatic stress disorder) Surgical History (Updated 08/18/22 @ 10:59 by Edita Rodgers DO) No significant past surgical history Social History Smoking/Tobacco Use Status: Current every day Tobacco Type: cigarettes Smoking risk assessment performed?: Yes Alcohol Intake: current Alcohol Intake frequency: 3 or more drinks per day Drug use: Never Substance use type: does not use Details: Denies Do you feel safe at home: Yes Do you feel safe in your relationship?: Yes Exam Narrative Exam Narrative: Physical Examination General: Alert, ambulatory Neuro: Alert, moving all extremities ambulatory without assistance Psych: Verbally aggressive yelling, threatening to assault and murder staff members
--- NOTE | 2022-09-01 20:23 | NUR.NOTE ---
[facility] here -hand cuffed and arrested pt and bringing him to [facility]. pt intoxicated, aggressive , punched the window next to the screen operator. said he was just discharged from [place] and is still suicidal and homicidal. had a pen in his hand and brandishing it like a weapon. said he was going to put this through his fucking throat. Nursing Note:
== END 2022-09-01 20:29 | disposition home or self-care (01) ==
PROVIDERS: Emergency Provider Emergency Medicine
DX: R45.6 Violent behavior (principal); F32.A Depression, unspecified; R45.851 Suicidal ideations
CPT/HCPCS: 99285; 99283

== ENCOUNTER 2022-09-02 03:48 | Emergency (ER) | payer MEDICAID, SELFPAY ==
[2022-09-02 03:52] VITALS: PULSE 103; RESP 16; TEMP 37
--- NOTE | 2022-09-02 03:55 | ED.GENADUL_ITS ---
Discharge Plan Disposition Patient Disposition: STILL A PATIENT Condition: Stable Discharge Details Chief Complaint: PsychEval Clinical Impression: Suicidal ideation Primary Care Provider: Unknown,Unknown ED Provider: Jarod Joseph Home Meds and New Rx's Prescriptions: No Action risperidone [Risperdal] 1 mg Tablet 0.5 mg PO BID clonidine HCl 0.1 mg Tablet 0.1 mg PO TID PRN (Reason: Anxiety) gabapentin 400 mg Capsule 800 mg PO TID omeprazole 40 mg Capsule,Delayed Release(Dr/Ec) 40 mg PO DAILY Medical Decision Making 41-year-old male with a past medical history of substance abuse, alcohol use, who was recently admitted for greater than a week for suicidal ideations, and was eventually transferred to [facility], where he was allegedly just discharged from there yesterday morning for being too violent, who then went and got notably intoxicated in town, and came to the ER threatening staff, punching keller, and holding a sharp object up to his throat. He was then arrested by police, and eventually after processing was brought to the intoxication center. While there he punched the wall with his left hand and felt some pain. But eventually he began making suicidal claims, and was then subsequently brought to the emergency department via EMS for medical evaluation and screening. Currently he complains of pain in his left hand at the fifth digit. He is left-hand dominant. He also complains of suicidal ideations and states that he would put a knife to his throat and cut his throat to end his life. He has no other complaints at this time. He is apologetic for his previous behavior. Physical exam demonstrates a calm and cooperative male, he does appear mildly intoxicated but is apologetic for his previous behavior. We will perform medical screening exam for medical clearance. We will get a patient observer, monitor closely and reach out to mental health if the patient is medically cleared. 7 AM Laboratory work-up has returned unremarkable. Patient notably stable. X-ray negative for fracture. Patient medically stable and medically cleared. Pending mental health evaluation for potential placement. Patient will be signed out to my colleague Dr. Barakat FINDINGS: Bones/joints: No acute fractures are identified. There are old healed fractures of the 5th proximal phalanx in the base of the 5th metacarpal. Alignment is anatomic. Soft tissues: There is a thin 2 mm linear radiodensity in the thenar soft tissues, of uncertain chronicity. IMPRESSION: 1. No acute fracture or malalignment in the left hand. 2. A thin 2 mm linear radiodensity in the thenar soft tissues is of uncertain chronicity. Thank you for allowing us to participate in the care of your patient. Dictated and Authenticated by: Sylwia Solis MD 09/02/2022 4:50 AM Eastern Time ([place] & [place]) HPI General Date/Time Provider Initiated Documentation: 09/02/22 03:53 . HPI Narrative: 41-year-old male with a past medical history of substance abuse, alcohol use, who was recently admitted for greater than a week for suicidal ideations, and was eventually transferred to [facility], where he was allegedly just discharged from there yesterday morning for being too violent, who then went and got notably intoxicated in town, and came to the ER threatening staff, punching keller, and holding a sharp object up to his throat. He was then arrested by police, and eventually after processing was brought to the intoxication center. While there he punched the wall with his left hand and felt some pain. But eventually he began making suicidal claims, and was then subsequently brought to the emergency department via EMS for medical evaluation and screening. Currently he complains of pain in his left hand at the fifth digit. He is left-hand dominant. He also complains of suicidal ideations and states that he would put a knife to his throat and cut his throat to end his life. He has no other complaints at this time. He is apologetic for his previous behavior. Related Data Home Medications Medication Instructions Recorded Confirmed risperidone 1 mg tablet (Risperdal) 0.5 mg PO BID 08/16/22 09/02/22 clonidine HCl 0.1 mg tablet 0.1 mg PO TID PRN Anxiety 08/18/22 09/02/22 gabapentin 400 mg capsule 800 mg PO TID 08/18/22 09/02/22 omeprazole 40 mg capsule,delayed 40 mg PO DAILY 08/18/22 09/02/22 release Allergies Allergy/AdvReac Type Severity Reaction Status Date / Time No Known Allergies Allergy Unverified 09/02/22 03:57 General JENISE: 2 Review of Systems All systems reviewed & are unremarkable except as noted in HPI and below PFSH All Active Problems (Updated 09/02/22 @ 07:00 by Jarod Joseph DO) History of alcohol abuse (Acute) Violent behavior (Acute) Suicidal ideation (Acute) Medical History Alcohol abuse Anxiety Chronic back pain Depression PTSD (post-traumatic stress disorder) Surgical History No significant past surgical history Social History Smoking/Tobacco Use Status: Current every day Tobacco Type: cigarettes Smoking risk assessment performed?: Yes Alcohol Intake: current Alcohol Intake frequency: 3 or more drinks per day Drug use: Never Substance use type: does not use Details: Denies Do you feel safe at home: Yes Do you feel safe in your relationship?: Yes Exam Narrative Exam Narrative: 1.Const: Well-nourished, Well-developed, appearing stated age 2.Eyes: PERRL, no conjunctival injection, and symmetrical lids. 3.ENT: Atraumatic external nose and ears. Moist MM. Neck: Symmetric, trachea midline, No thyromegaly. 4.CVS: +S1/S2, No murmurs or gallops. Peripheral pulses 2+ and equal in all extremities. Brisk capillary refill in all extremities. 5.RESP: Unlabored respiratory effort. Clear to auscultation bilaterally. No wheezes rales or rhonchi 6.GI: Soft, Nontender/Nondistended, No hepatosplenomegaly. No guarding or rebound. 7.MSK: Normocephalic/Atraumatic, Extremities w/o deformity or ttp No cyanosis or clubbing, Normal movement of all extremities 8.Skin: Warm, Dry. No rashes or lesions. 9.Neuro: handstitching machine collar feller II-XII grossly intact. Sensation grossly intact, no focal neurologic deficits. 10.Psych: (AAO) x3. Appropriate mood and affect, but does appear mildly intoxicated
[2022-09-02 04:15] LABS: Abs Immature Grans 0.03 10^3/uL (0.0-0.06); Absolute Basophil Count 0.04 10^3/uL (0.0-0.2); Absolute Eosinophil Count 0.39 10^3/uL (0.0-0.7); Absolute Lymphocyte Count 2.59 10^3/uL (1.2-3.4); Absolute Monocyte Count 0.55 10^3/uL (0.1-0.8); Basophils % 0.6; Eosinophils % 5.4; HGB 15.9 g/dL (13.5-17.5); Immature Grans % 0.4; MCH 29.4 pg (27.0-33.0); MCHC 34.6 % (32.0-36.0); MCV 85 fL (80-95); MPV 9.8 fL (8.0-11.0); Monocytes % 7.6; Platelet Count 220 10^3/uL (130-400); RDW 11.2 % (11.8-14.1); RDW-SD 34.6 fL
[2022-09-02 04:21] LABS: Source Nasal/Nares
[2022-09-02] MEDS: Acetaminophen 500 MG TAB 1000 MG PO (04:23)
[2022-09-02 04:30] LABS: Salicylate < 2.8 mg/dL (<2.8)
[2022-09-02 04:31] LABS: Acetaminophen < 2 ug/mL (10-30)
--- NOTE | 2022-09-02 04:32 | DI.RAD_ITS ---
Exam(s) XR HAND LT COMPLETE EXAM: XR HAND LT COMPLETE CLINICAL HISTORY: punched wall, attn 5th digit/metacarpal. TECHNIQUE: 2D digital imaging was performed. COMPARISON: No exams were available for comparison FINDINGS: 3 views There is no evidence of acute fracture or dislocation. Healed fracture in the proximal phalanx of th e 5th finger. No osseous lesions nor erosions. Incidentally noted is a small radiopaque foreign bod y in the soft tissues between the thumb and 2nd metacarpals-thenar eminence. IMPRESSION: As above but no acute fractures. Radiopaque foreign body noted. Measures 2 millimeters. DATA REPOSITORY: RADIATION DOSE DELIVERED:
[2022-09-02 04:44] LABS: ALT 33 U/L (16-63); AST 48 U/L (15-37); Albumin 3.4 g/dL (3.4-5.0); Alkaline Phosphatase 184 U/L (46-116); Anion Gap 12.9 mmol/L (3-11); BUN 6 mg/dL (7-18); Bilirubin, Total 0.6 mg/dL (0.2-1.0); CO2 24.1 mmol/L (21.0-32.0); CREATININE 0.7 mg/dL (0.70-1.30); Calcium 8.5 mg/dL (8.5-10.1); Chloride 106 mmol/L (98-107); Estimated GFR 118.72 (mL/min/1.73m2); Glucose 134 mg/dL (74-106); Potassium 3.6 mmol/L (3.5-5.1); Sodium 143 mmol/L (136-145); TSH (W/Ref FT4) 2.58 uIU/mL (0.36-3.74); Total Protein 8.2 g/dL (6.4-8.2)
--- NOTE | 2022-09-02 04:51 | DI.VRAD_ITS ---
PROCEDURE INFORMATION: Exam: XR Left Hand Exam date and time: 09/02/2022 4:27 AM Age: 41 years old Clinical indication: Injury or trauma; Other: Punched wall; Blunt trauma (contusions or hematomas); Hand; Right TECHNIQUE: Imaging protocol: Radiologic exam of the Left hand. Views: 3 or more views. COMPARISON: No relevant prior studies available. FINDINGS: Bones/joints: No acute fractures are identified. There are old healed fractures of the 5th proximal phalanx in the base of the 5th metacarpal. Alignment is anatomic. Soft tissues: There is a thin 2 mm linear radiodensity in the thenar soft tissues, of uncertain chronicity. IMPRESSION: 1. No acute fracture or malalignment in the left hand. 2. A thin 2 mm linear radiodensity in the thenar soft tissues is of uncertain chronicity. Dictated and Authenticated by: Sylwia Solis MD. Ordering:SOO Olivera MD
[2022-09-02 04:54] LABS: COVID-19 PCR Negative (Negative)
[2022-09-02 08:07] LABS: *AMPHETAMINES SCREEN URINE Negative (Negative); *BARBITURATES SCREEN URINE Negative (Negative); *BENZODIAZEPINES SCREEN URINE Positive (Negative); Cannabinoids THC Negative (Negative); Cocaine Screen,Urine Negative (Negative); METHADONE URINE SCREEN Negative (Negative); OPIATES URINE SCREEN Negative (Negative)
[2022-09-02 08:14] LABS: Tricyclic Antidepressants Negative (Negative)
[2022-09-02] MEDS: Ibuprofen 600 MG TAB PO (10:23)
--- NOTE | 2022-09-02 11:31 | W.EDPROG ---
Date of service: 09/02/22 Time of Service: 11:31 Medical Decision Making pt evalauted by [facility] and now voicing no si/hi and wants to go home. He has been calm and cooperative here, voices to me no si/hi, did a safety plan with [facility]. He will f/u with his pcp and [facility], return precautions given Sign Out Sign Out Data: Sign Out Comment: Pending mental health evaluation. Suicidal. Voluntary. Last updated by Jarod Joseph DO at 09/02/22 07:08 Discharge Plan Disposition Patient Disposition: HOME Condition: Stable Discharge Details Clinical Impression: Depression Primary Care Provider: Unknown,Unknown ED Provider: Jw Barakat Home Meds and New Rx's Prescriptions: Continued risperidone [Risperdal] 1 mg Tablet 0.5 mg PO BID clonidine HCl 0.1 mg Tablet 0.1 mg PO TID PRN (Reason: Anxiety) gabapentin 400 mg Capsule 800 mg PO TID omeprazole 40 mg Capsule,Delayed Release(Dr/Ec) 40 mg PO DAILY Discharge Instructions Instructions: Depression (ED) Additional Instructions: follow up with your mental health providers if you feel more ill or have worsening symptoms return to the emergency department
--- NOTE | 2022-09-02 11:46 | NUR.NOTE ---
Nursing Note: Ghislaine [phone] [place] [phone]
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
== END 2022-09-02 11:47 | disposition home or self-care (01) ==
PROVIDERS: Student in an Organized Health Care Education/Training Program; Emergency Provider Emergency Medicine
DX: F32.A Depression, unspecified (principal); Z20.822 Contact with and (suspected) exposure to COVID-19
CPT/HCPCS: 36415; 80053; 80307; 87635; 99284; 73130; 80320; 80329; 84443; 85025

== ENCOUNTER 2022-09-08 14:49 | Inpatient (IN) | payer MEDICAID, SELFPAY ==
[2022-09-08 14:57] VITALS: BP 164/94; PULSE 82; RESP 16; TEMP 37; O2SAT 97
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
[2022-09-09 02:09] VITALS: BP 126/55; PULSE 76; RESP 18; TEMP 36.5; O2SAT 93
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
[2022-09-09] MEDS: Acetaminophen 500 MG TAB (02:26)
[2022-09-09] MEDS: Acetaminophen 500 MG TAB PO (02:37)
[2022-09-09] MEDS: Omeprazole 20 MG CAPCR 40 MG PO (07:53)
[2022-09-09] MEDS: Lidocaine 5% Patch 1 PATCH (07:53)
[2022-09-09] MEDS: Gabapentin 800 MG TAB PO ×3 (07:53→20:06)
[2022-09-09] MEDS: cloNIDine 0.1 MG TAB PO ×3 (07:53→20:06)
--- NOTE | 2022-09-09 08:45 | CMSP_ITS ---
- If Service Date Differs Date of service: 09/09/22 Time of Service: 08:45 Care Management Safety Plan Status: Voluntary - Reason for Wait Reason for Wait: Inpatient Admission (Awaiting Voluntary Inpatient Psych Placement) VOLUNTARY FOR INPATIENT PSYCHIATRIC STABILIZATION. Radha Mendoza presented to the ED on 09/08/22 (5th ED visit in 3 weeks for mental health evaluation) for hearing voices. Pt is a 41 year old male with a history of substance abuse, anxiety, depression and PTSD, recently released from [facility]. Pt is medically cleared by ED provider, per smart medical clearance form. At this time, Radha will remain at [facility] while waiting for voluntary inpatient psych hospitalization with ongoing evaluation and support from [facility] child day care teacher's. Safety plan has been established with patient, and care team, to adhere to patient goals, identify restrictions based on behavioral status, address nutrition, and determine allowed personal belongings, tools for hygiene and personal care. Determine level of activity including ambulation, level of supervision, visitors, and determine privileges based on behaviors and level of engagement by pt. SAFETY PLAN: 1. Will remain on suicide precautions. In Paper Clothes 2. Will remain in room under direct supervision of one-on-one staff at all times provided by [employer]; REGINA, MAINTENANCE SERVICE TECHNICIAN clinical rehabilitation coordinator. 3. May have paper cups, plates, finger foods as well as a cardboard spoon with which to eat meals. 4. Follow [facility] Management of the Admitted Behavioral Health Patient policy. 5. Comfort bath system only while in the ED. 6. No personal belongings-soft items permitted at RN discretion. 7. Visitors-none at this time. 8. Activities: soft cart items approved per RN discretion. 9. Bathroom privileges with escort in the ED, available in room without li mitation on M/S. 10. Phone: contact limited to family at this time, via cordless phone at RN discretion. 11. Due to VOLUNTARY status, if patient wishes to leave [facility], staff will contact [facility] Crisis Screener ([phone]) and On-Call Director Business Development ([phone]) as soon as possible. In the event of elopement, notify [facility] Police ([phone]). Patient is currently voluntarily at [facility] and seeking inpatient admission when a bed becomes available. [facility] Frontline Backend Python Developer will continue seeking placement. Please contact the Makeup Sales Consultant Director Business Development ([phone]) and [facility] Backend Python Developer ([phone]) for any needed changes in the Safety Plan. Safety plan has been provided to interdepartmental care team.
--- NOTE | 2022-09-09 08:53 | NUR.NOTE ---
Nursing Note: While scrip was passing meds to patient, patient stated Clonidine doesn't do shit and they were supposed to get me something else for my anxiety last night MD aware.
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
[2022-09-09] MEDS: diazePAM 5 MG TAB 10 MG PO (23:12)
[2022-09-10] MEDS: Haloperidol 5 MG/ML VIAL IM (06:09)
[2022-09-10] MEDS: Omeprazole 20 MG CAPCR 40 MG PO (07:49)
[2022-09-10] MEDS: cloNIDine 0.1 MG TAB PO ×2 (07:50→13:35)
[2022-09-10] MEDS: Gabapentin 800 MG TAB PO ×2 (07:50→13:35)
--- NOTE | 2022-09-10 07:57 | PDOC.CMSAFED ---
- If Service Date Differs Date of service: 09/10/22 Time of Service: 07:57 Care Management Safety Plan Status: Voluntary - Reason for Wait Reason for Wait: Inpatient Admission (Awaiting inpatient psych treatm) VOLUNTARY FOR INPATIENT PSYCHIATRIC STABILIZATION. Radha Mendoza presented to the ED on 09/08/22 (5th ED visit in 3 weeks for mental health evaluation) for hearing voices. Pt is a 41 year old male with a history of substance abuse, anxiety, depression and PTSD, recently released from [facility]. Pt is medically cleared by ED provider, per smart medical clearance form. At this time, Radha will remain at [facility] while waiting for voluntary inpatient psych hospitalization with ongoing evaluation and support from [facility] on site property manager's. 09/10/22 Radha wants to take a shower. Shower privileges are added to Radha's safety plan after reviewing Radha's request with ER staff. RN sorting supervisor/Tamela is OK with plan, which will also be dependent on staff availability. Safety plan has been established with patient, and care team, to adhere to patient goals, identify restrictions based on behavioral status, address nutrition, and determine allowed personal belongings, tools for hygiene and personal care. Determine level of activity including ambulation, level of supervision, visitors, and determine privileges based on behaviors and level of engagement by pt. SAFETY PLAN: 1. Will remain on suicide precautions. In Paper Clothes 2. Will remain in room under direct supervision of one-on-one staff at all times provided by [employer]; REGINA, ENGINEERING INTERN directory compiler. 3. May have paper cups, plates, finger foods as well as a cardboard spoon with which to eat meals. 4. Follow [facility] Management of the Admitted Behavioral Health Patient policy. 5. Comfort bath system only, shower permitted with escort at RN discretion. 6. No personal belongings-soft items permitted at RN discretion. 7. Visitors-none at this time. 8. Activities: soft cart items approved per RN discretion. 9. Bathroom privileges with escort in the ED, available in room without limitation on M/S. 10. Phone: contact limited to family at this time, via cordless phone at RN discretion. 11. Due to VOLUNTARY status, if patient wishes to leave [facility], staff will contact [facility] Crisis Screener ([phone]) and On-Call Desizing Machine Back Tender ([phone]) as soon as possible. In the event of elopement, notify [facility] Police ([phone]). Patient is currently voluntarily at [facility] and seeking inpatient admission when a bed becomes available. [facility] Frontline Manager Interface will continue seeking placement. Please contact the Cytogenetic Technician Desizing Machine Back Tender ([phone]) and [facility] Manager Interface ([phone]) for any needed changes in the Safety Plan. Safety plan has been provided to interdepartmental care team.
[2022-09-10 13:36] VITALS: BP 130/76; PULSE 84; RESP 18; TEMP 36.4; O2SAT 95
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
[2022-09-11] MEDS: Gabapentin 800 MG TAB PO ×3 (08:11→20:45)
[2022-09-11] MEDS: cloNIDine 0.1 MG TAB PO ×3 (08:11→20:45)
[2022-09-11] MEDS: Omeprazole 20 MG CAPCR 40 MG PO (08:11)
[2022-09-11 08:21] VITALS: BP 125/75; PULSE 73; RESP 18; TEMP 36.4; O2SAT 95
--- NOTE | 2022-09-11 11:42 | PDOC.MHPN2 ---
Date of service: 09/11/22 Time of Service: 10:25 PHQ-9 Over the last 2 weeks, how often have you been bothered by any of the following problems? 1. Little interest or pleasure in doing things: nearly every day 2. Feeling down, depressed, or hopeless: nearly every day 3. Trouble falling or staying asleep, or sleeping too much: nearly every day 4. Feeling tired or having little energy: nearly every day 5. Poor appetite or overeating: not at all 6. Feeling bad about yourself - or that you are a failure or have let yourself and your family down: nearly every day 7. Trouble concentrating on things, such as reading the newspaper or watching television: nearly every day 8. Moving or speaking so slowly that other people could have noticed? - Or the opposite - being so fidgety or restless that you have been moving around a lot more than usual: more than half the days 9. Thoughts that you would be better off or of hurting yourself in some way: several days Total score: 21 If you checked off any problems, how difficult have these problems made it for you to do your work, take care of things at home, or get along with other people?: extremely difficult PHQ-9 Results: Positive Source: Developed by Drs. Richie Macdonald, Cydney Massey, Joshua Mcmahon and colleagues, with an educational hector from [employer]. Suicide Severity Rate CSSRS Have you wished you were or wished you could go to sleep and not wake up?: Yes Have you actually had any thoughts of killing yourself?: Yes CSSRS2 Have you been thinking about how you might do this?: Yes Have you had these thoughts and had some intention of acting on them?: Yes Have you started to work out or worked out the details of how to kill yourself? Do you intend to carry out this plan?: Yes CSSRS3 Have you ever done anything, started to do anything or prepared to do anything to end your life?: Yes CSSRS4 Was this within the past three months?: Yes Screening Score Total Score: 8 Screening: Positive Mental Health Emergency Note Release [facility] release signed:: Yes Reason for Visit Client presented to the ED on 09.08.22 endorsing SI & HI. He was discharged from [facility] on 08.31.22 and reported several stressors including housing, therapy and med management caused him to decompensate. Client is seen today for daily re-assessment while seeking voluntary admission at an inpatient facility. In the last 2 weeks has the pt presented for ES prior to today?: Yes, presented at Client Information Client is: Adult Outpatient Well Housed: No,status: Homeless Unstable housing Safety Risk/Harm to Self or Others Current Ideation to Harm Self or Others: Yes to self. (Client currently endorsing suicidal ideations with intent and plan. ) Intent: yes, has intent. Plan: yes,has a plan. History of suicide attempt: No history of suicide attempt reported Risk: Does risk to harm exist?: yes. Access to means: No. Risk: Moderate Risk Asssessment/Mental Status Appearance: Disheveled Attitude: Cooperative and Demanding Behavior: Agitated Speech: Pressured and Loud Affect: Cogruent with mood Mood: Elevated, Stressed, Anxious and Irritable Thought process: Goal directed Hallucinations: yes, Auditory (Client reports hearing constant voices that are telling him: you aren't good enough nobody is hear to help you you would be better off . ) Delusions: No Attention: Wandering Perception: Not impaired Orientation: Fully orientated Memory: Intact Insight: Fair Judgement: Fair Neurovegetative Symptoms Sleep: Decrease Appetitie: No change Interests: Decrease Energy: Decrease Libido: Not applicable Substance Use: ETOH dependence Do you use nicotine?: Yes Have you used substances in the last 7 days?: No Additional Issues: Assaultive/Threatening Behavior: Yes Medical Concerns: No Client engaged in active self harm w/weapon: No Threatening to run away: No Child reported abuse/neglect: No Voluntarily presenting for services: Yes Domestic violence is a concern: No Extreme Psychosis or extreme behavior is present: No Impression Radha Mendoza is a 41-year-old male. Radha Mendoza was seen by this narrative writer in the Emergency Room at [facility] for daily reassessment. Radha Mendoza presents with symptoms most congruent with major depressive disorder as evidenced by his self report of increased suicidal ideations, decrease in sleep and increased irritability. He reported he has a loss of interest in work and family due to his self-reported lack of coping skills. He reported that for the past 20 years, his only coping skill has been drinking beer. He reported he would act on thoughts of suicide if he were to leave the hospital and on a scale of 0-10 (0= no risk, 10=actively suicidal) he reported he was a 10. He said his plan to end his life would be to get run over by a tractor trailer truck and he described details of this plan including timing. His second idea for a plan to end his life was stabbing himself in his chest. He reported he did not have homicidal ideation. Mr. Mendoza is in need of short term in-patient treatment to address co-occurring mental health and substance abuse issues. Client would benefit from long-term residential substance abuse treatment after inpatient treatment due to numerous years of substance abuse as he self-reported that he has used substances for 20+ years. Plan/Disposition Recommended Disposition: Hospitalization facilities contacted. Plan: Client will remain at [facility] ED until placement is secured. Referrals have been faxed to [facility], [facility], , and [facility]. Both [facility] and [facility] are only accepting in house referrals today. has declined client due to acuity and [facility]'s referral is under review.? Person reported agreement to plan: Yes Facilities contacted if Applicable [facility], No bed available [facility] (Only accepting in house ) Not accepted, Only accepting in house referrals [facility] (Only accepting in house) Not accepted, Only accepting in house referrals, [facility] (Acuity) Not accepted, Acuity Reports/communication Outcome discussed with: ED/Personnel (Verbal passover given to ED provider Akanksha Coleman. ) Final Disposition/Discharge Transportation Checklist completed and faxed: No
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
--- NOTE | 2022-09-11 16:04 | NUR.NOTE ---
Addendum entered by Makayla Box 09/11/22 16:10: [place] [phone] Original Note: Nursing Note: Eron Vegas called asking about patient. She is not on the HIPPA form, and the patient is only allowed phone privileges with family. She was told that at this time I cannot release any information about patients in the ED unless they are on the HIPPA form. She understood this.
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
[2022-09-12 08:17] VITALS: BP 121/78; PULSE 77; TEMP 36.5; O2SAT 94
[2022-09-12] MEDS: Omeprazole 20 MG CAPCR 40 MG PO (09:14)
[2022-09-12] MEDS: cloNIDine 0.1 MG TAB PO ×2 (09:14→14:11)
[2022-09-12] MEDS: Gabapentin 800 MG TAB PO (09:14)
--- NOTE | 2022-09-12 09:51 | PDOC.CMSAFED ---
- If Service Date Differs Date of service: 09/12/22 Time of Service: 09:51 Care Management Safety Plan Status: Voluntary - Reason for Wait Reason for Wait: Inpatient Admission VOLUNTARY FOR INPATIENT PSYCHIATRIC STABILIZATION. Radha Mendoza presented to the ED on 09/08/22 (5th ED visit in 3 weeks for mental health evaluation) for hearing voices. Pt is a 41 year old male with a history of substance abuse, anxiety, depression and PTSD, recently released from [facility]. Pt is medically cleared by ED provider, per smart medical clearance form. At this time, Radha will remain at [facility] while waiting for voluntary inpatient psych hospitalization with ongoing evaluation and support from [facility] home health clinician's. 09/12/22 Radha meets with Martínez, [facility] crisis screener, for a reassessment this morning. Mratínez reports that [facility] and [facility] have declined patient due to acuity. [facility] is advocating for [facility] to consider patient as a level 1, despite his being voluntary at this time. CM will continue to follow. Safety plan has been established with patient, and care team, to adhere to patient goals, identify restrictions based on behavioral status, address nutrition, and determine allowed personal belongings, tools for hygiene and personal care. Determine level of activity including ambulation, level of supervision, visitors, and determine privileges based on behaviors and level of engagement by pt. SAFETY PLAN: 1. Will remain on suicide precautions. In Paper Clothes 2. Will remain in room under direct supervision of one-on-one staff at all times provided by [employer], MEDICAL TRANSCRIPTION SUPERVISOR, INK TECHNICIAN railroad construction director. 3. May have paper cups, plates, finger foods as well as a cardboard spoon with which to eat meals. 4. Follow [facility] Management of the Admitted Behavioral Health Patient policy. 5. Shower permitted with escort at RN discretion. 6. No personal belongings-soft items permitted at RN discretion. 7. Visitors-none at this time. 8. Activities: soft cart items, music tablet, television and other activities at RN discretion. 9. Bathroom privileges with escort in the ED, available in room without limitation on M/S. 10. Phone: contact limited to family at this time, via [employer] hospital phone at RN discretion. 11. Due to VOLUNTARY status, if patient wishes to leave [facility], staff will contact [facility] Crisis Screener ([phone]) and On-Call Cosmetician Apprentice ([phone]) as soon as possible. In the event of elopement, notify [facility] Police ([phone]). Patient is currently voluntarily at [facility] and seeking inpatient admission when a bed becomes available. [facility] Frontline [employer] Member Other Ranks will continue seeking placement. Please contact the Procurement Agent Cosmetician Apprentice ([phone]) and [facility] Defence [employer] Member Other Ranks ([phone]) for any needed changes in the Safety Plan. Safety plan has been provided to interdepartmental care team.
[2022-09-12 10:01] LABS: Source Nasal/Nares
[2022-09-12] MEDS: Acetaminophen 325 MG TAB (10:48)
[2022-09-12 10:49] LABS: COVID-19 PCR Negative (Negative)
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
--- NOTE | 2022-09-12 12:53 | HPE_ITS ---
Date of service: 09/12/22 Time of Service: 12:53 Assessment and Plan Assessment and plan (1) History of alcohol abuse: Status: Acute Assessment and plan: Alcohol has been his coping mechanism for stressors. No withdrawal symptoms since admission. Has community assistant golf coach arranged for discharge. (2) Anxiety: Assessment and plan: He has noted modest improvement with gabapentin and clonidine. Avoiding benzodiazines. Buspar previously tried and not helpful per pt. (3) Depression: Status: Chronic Assessment and plan: As above. Not on antidepressants; not placed on one at [facility] recently. (4) Suicidal ideation: Status: Acute Assessment and plan: He has continued to voice suicidal thoughts with plans. No HI. Mental health to continue to follow. (5) Sciatica: Status: Acute Assessment and plan: He denies previous benefit of NSAIDS. He has undergone physical therapy in the past. Gabapentin has helped to a modest degree; increased to 900mg TID. History of Present Illness History of Present Illness Chief Complaint: Suicidal ideations, anxiety Narrative: this is a 41 yo male with a longstanding h/o Etoh abuse, anxiety, chronic sciatica. He presented to the ED on 09.08.22 endorsing SI & HI. He was discharged from [facility] on 08.31.22 and reported several stressors including housing, therapy and med management caused him to decompensate. Mental Health evaluated for re-assessment while seeking voluntary admission at an inpatient facility.? He has been in the ED since admission on gabapentin and clonidine. Review of Systems All systems reviewed & are unremarkable except as noted in HPI and below PFSH All Active Problems (Updated 09/12/22 @ 13:19 by Daniel Johansen MD) Sciatica (Acute) History of alcohol abuse (Acute) Violent behavior (Acute) Depression (Chronic) Delusions (Acute) Depression (Chronic) Hallucination (Acute) Suicidal ideation (Acute) Medical History Alcohol abuse Anxiety Chronic back pain Depression PTSD (post-traumatic stress disorder) Surgical History No significant past surgical history Social History Smoking/Tobacco Use Status: Current every day Tobacco Type: cigarettes Smoking risk assessment performed?: Yes Alcohol Intake: current Alcohol Intake frequency: 3 or more drinks per day Drug use: Never Substance use type: does not use Details: Denies Do you feel safe at home: Yes Do you feel safe in your relationship?: Yes Meds Allergies and Home Medications Allergies Allergy/AdvReac Type Severity Reaction Status Date / Time No Known Allergies Allergy Unverified 09/08/22 15:01 Home Medications Medication Instructions Recorded Confirmed Type clonidine HCl 0.1 mg tablet 0.1 mg PO TID PRN Anxiety 08/18/22 09/08/22 History gabapentin 400 mg capsule 800 mg PO TID 08/18/22 09/08/22 History omeprazole 40 mg capsule,delayed 40 mg PO DAILY 08/18/22 09/08/22 History release Exam Narrative Exam Narrative: Lying on Right side. Asleep. Readily awakens to voice. Const General: cooperative and no acute distress Nutritional Appearance: obese Orientation: alert and oriented x3 Eyes Sclera: sclerae normal Resp Effort & Inspection: normal respiratory effort Auscultation: clear to auscultation bilaterally Cardio Rate: regular rate Rhythm: regular rhythm Heart Sounds: S1 normal and S2 normal Neuro General: no focal motor deficits Cranial Nerves: facial strength normal Cognition: normal cognition Speech: speech normal Psych Appearance: grossly normal Mental Status: mental status grossly normal Speech and Movement: speech and movement normal Affect: anxious affect Attitude: cooperative Thought Process: normal Thought Content: normal Insight: fair Results Labs Labs: Laboratory Results - last 24 hr 09/12/22 09:52 COVID-19 Source Nasal/Nares SARS-CoV-2 (PCR) Negative Last Vital Signs Temp 36.5 C 09/12/22 08:17 Pulse 77 09/12/22 08:17 Resp 18 09/11/22 08:21 BP 121/78 09/12/22 08:17 Pulse Ox 94 09/12/22 08:17
[2022-09-12] MEDS: Gabapentin 300 MG CAP 900 MG PO (14:11)
--- NOTE | 2022-09-13 07:39 | W.PM.DS.N ---
Date of service: 09/12/22 Time of Service: 15:00 DS: Diagnosis Discharge Diagnosis (1) History of alcohol abuse: Status: Acute (2) Anxiety: (3) Depression: Status: Chronic (4) Suicidal ideation: Status: Acute (5) Sciatica: Status: Acute Discharge Plan Disposition Patient Disposition: Against Medical Advise Condition: Stable Condition: Fair Discharge Details Reason For Visit: Suicidal Ideations,Depression Admit Date/Time: 09/12/22 09:47 Admit Provider: Daniel Johansen Attending Provider: Daniel Johansen Primary Care Provider: Unknown,Unknown Home Meds and New Rx's Prescriptions: No Action clonidine HCl 0.1 mg Tablet 0.1 mg PO TID PRN (Reason: Anxiety) gabapentin 400 mg Capsule 800 mg PO TID omeprazole 40 mg Capsule,Delayed Release(Dr/Ec) 40 mg PO DAILY Discharge Data Discharge Date/Time-TO BE ENTERED AT DEPARTURE: 09/12/22 18:45 Discharge Comment: AMA DS: Summary Time Spent with Patient providing and/or coordinating discharge services: Less than 30 minutes Status at Discharge Functional status at discharge: independent ambulation Overall status at discharge: patient is not back to baseline Mental Status: mental status grossly normal and other (Left AMA. ) Speech and Movement: speech clear Mood: other (Left AMA. ) Affect: other (Left AMA) Exam Psych Mental Status: mental status grossly normal and other (Left AMA. ) Speech and Movement: speech clear Mood: other (Left AMA. ) Affect: other (Left AMA) DS: Data Vitals/I&O Vitals and I&O: Vital Signs Temperature 36.5 C 09/12/22 08:17 Temperature Source Oral 09/12/22 08:17 Pulse 77 09/12/22 08:17 Pulse Rhythm Regular 09/12/22 17:05 Respiratory Rate 18 09/11/22 08:21 Respiratory Effort Non-Labored 09/12/22 17:05 Respiratory Depth Normal 09/12/22 17:05 Respiratory Pattern Normal 09/12/22 17:05 Blood Pressure 121/78 09/12/22 08:17 Blood Pressure Position Sitting 09/08/22 14:57 Pulse Oximetry 94 09/12/22 08:17 Oxygen Delivery Method Room Air 09/12/22 08:17 Oxygen Flow Rate 0 09/12/22 08:17 Pain Level 10 09/12/22 11:32 Comment 09/12/22 08:17 Intake & Output 09/12/22 09/12/22 09/13/22 11:59 23:59 11:59 Intake Total 240 / 240 Balance 240 / 240 Weight 121.109 kg Intake: Oral 240 / 240 Other: Urine Appearance Clear Data Completed and Pending Labs on day of discharge: Labs from last 24 hours 09/12/22 09:52 COVID-19 Source Nasal/Nares SARS-CoV-2 (PCR) Negative PFSH All Active Problems (Updated 09/12/22 @ 13:19 by Daniel Johansen MD) Sciatica (Acute) History of alcohol abuse (Acute) Violent behavior (Acute) Depression (Chronic) Delusions (Acute) Depression (Chronic) Hallucination (Acute) Suicidal ideation (Acute) Medical History Alcohol abuse Anxiety Chronic back pain Depression PTSD (post-traumatic stress disorder) Surgical History No significant past surgical history Social History Smoking/Tobacco Use Status: Current every day Tobacco Type: cigarettes Smoking risk assessment performed?: Yes Alcohol Intake: current Alcohol Intake frequency: 3 or more drinks per day Drug use: Never Substance use type: does not use Details: Denies Do you feel safe at home: Yes Do you feel safe in your relationship?: Yes
== END 2022-09-12 18:45 | disposition left against medical advice (07) | DRG 881 ==
LOC: ER 09-12 10:14 → MS 09-12 11:09
PROVIDERS: Emergency Medicine; Admitting Provider Family Medicine; Emergency Provider Emergency Medicine; Visit Provider Family Medicine
DX: F32.A Depression, unspecified (principal); R45.851 Suicidal ideations; R44.0 Auditory hallucinations; F41.9 Anxiety disorder, unspecified; F43.10 Post-traumatic stress disorder, unspecified; Z79.899 Other long term (current) drug therapy; F10.10 Alcohol abuse, uncomplicated; F03.90 Unspecified dementia, unspecified severity, without behavioral disturbance, psychotic disturbance, mood disturbance, and anxiety; F17.210 Nicotine dependence, cigarettes, uncomplicated; R45.6 Violent behavior; Z20.822 Contact with and (suspected) exposure to COVID-19
CPT/HCPCS: 87635; 99235; J1630

== ENCOUNTER 2022-09-20 19:36 | Emergency (ER) | payer MEDICAID, SELFPAY ==
--- NOTE | 2022-09-20 20:36 | ED.GENADUL_ITS ---
Discharge Plan Disposition Patient Disposition: [facility] Condition: Stable Discharge Details Clinical Impression: Violent behavior, Alcohol intoxication Primary Care Provider: Unknown,Unknown ED Provider: Jarod Joseph Home Meds and New Rx's Prescriptions: No Action clonidine HCl 0.1 mg Tablet 0.1 mg PO TID PRN (Reason: Anxiety) gabapentin 400 mg Capsule 800 mg PO TID omeprazole 40 mg Capsule,Delayed Release(Dr/Ec) 40 mg PO DAILY Discharge Data Discharge Date/Time-TO BE ENTERED AT DEPARTURE: 09/20/22 20:57 Medical Decision Making 41-year-old male with a past medical history of substance abuse, alcohol use, previous/multiple mental health referrals recent admission to [facility] where he was discharged for being too violent, who today was not able to get his normal medications. [facility] created a plan for him, which required him to get on the bus to go to the appropriate location to get his medications. Patient contacted [facility] and stated her mental health I am going to go down and get a bunch of pills and get high, can you please schedule the visit for tomorrow instead. [facility] informed the patient that they would not be able to reschedule this, after which point the patient said well maybe I will just go kill myself. The patient then went and drank alcohol and became intoxicated. He did not attempt to end his life. However because of his previous statements that warrant was placed for him. [facility] police went and got the patient, the patient was then brought in handcuffs to the emergency department for further evaluation. Currently the patient refuses to speak to me if he has any desire to harm himself. He states that I am only going to talk to my development executive. He explicitly does not make any comments about self-harm or harming others though. He denies any of the previous events that happened today that were corroborated by her mental health advocates. He denies any other complaints. He is unwilling to converse any more with myself. Physical exam is unremarkable aside for the patient appearing intoxicated. He appears uncooperative, and confrontational on exam. Patient is currently in the lobby with police officers. Patient appears notably medically stable. Unfortunately because of the patient's intoxicated status and both violent and confrontational history with nursing staff here both tonight and on multiple previous instances, I do worry about him and his current predicament. I have reached out to our mental health advocates to see if he would be an appropriate candidate for continued observation in the intoxication center. They are paxton clayton out for this potential availability. Mental health has been contacted, a group decision has been made utilizing mental health, lawn enforcement, and the [facility] mental health liaison made center for sobering, he will be watched to their per mental health plan, after which he will be reevaluated by the mental health advocates. Patient is medically stable on my assessment. Due to concern for nursing safety, and patient noncompliance, complete nursing triage assessment was not able to be finished secondary to the patient's status, however clinically on my observation and interactions with the patient he demonstrated notable clinical medical stability from the information and assessment that was capable of being provided to me at that moment/encounter episode. The documentation in this chart was dictated using [employer] dictation software. Please excuse any dictation errors. Sign Out No HPI General Date/Time Provider Initiated Documentation: 09/20/22 20:26 . HPI Narrative: 41-year-old male with a past medical history of substance abuse, alcohol use, previous/multiple mental health referrals recent admission to [facility] where he was discharged for being too violent, who today was not able to get his normal medications. Mental health created a plan for him, which required him to get on the bus to go to the appropriate location to get his medications. Patient contacted mental [facility] and stated her mental health I am going to go down and get a bunch of pills and get high, can you please schedule the visit for tomorrow instead. [facility] informed the patient that they would not be able to reschedule this, after which point the patient said well maybe I will just go kill myself. The patient then went and drank alcohol and became intoxicated. He did not attempt to end his life. However because of his previous statements that warrant was placed for him. [facility] police went and got the patient, the patient was then brought in handcuffs to the emergency department for further evaluation. Currently the patient refuses to speak to me if he has any desire to harm himself. He states that I am only going to talk to my development executive. He explicitly does not make any comments about self-harm or harming others though. He denies any of the previous events that happened today that were corroborated by her mental health advocates. He denies any other complaints. He is unwilling to converse any more with myself. Related Data Home Medications Medication Instructions Recorded Confirmed clonidine HCl 0.1 mg tablet 0.1 mg PO TID PRN Anxiety 08/18/22 09/08/22 gabapentin 400 mg capsule 800 mg PO TID 08/18/22 09/08/22 omeprazole 40 mg capsule,delayed 40 mg PO DAILY 08/18/22 09/08/22 release Allergies Allergy/AdvReac Type Severity Reaction Status Date / Time No Known Allergies Allergy Unverified 09/08/22 15:01 General JENISE: 2 Review of Systems All systems reviewed & are unremarkable except as noted in HPI and below PFSH All Active Problems (Updated 09/21/22 @ 08:57 by Jarod Joseph DO) Alcohol intoxication (Acute) Sciatica (Acute) Violent behavior (Acute) Depression (Chronic) Delusions (Acute) Suicidal ideation (Acute) Medical History Alcohol abuse Anxiety Chronic back pain Depression PTSD (post-traumatic stress disorder) Surgical History No significant past surgical history Social History Smoking/Tobacco Use Status: Current every day Tobacco Type: cigarettes Smoking risk assessment performed?: Yes Alcohol Intake: current Alcohol Intake frequency: 3 or more drinks per day Drug use: Never Substance use type: does not use Details: Denies Do you feel safe at home: Yes Do you feel safe in your relationship?: Yes Exam Narrative Exam Narrative: 1.Const: Well-nourished, Well-developed, appearing stated age 2.Eyes: PERRL, no conjunctival injection, and symmetrical lids. 3.ENT: Atraumatic external nose and ears. Moist MM. Neck: Symmetric, trachea midline, No thyromegaly. 4.CVS: Brisk capillary refill in all extremities. Normal rate 5.RESP: Unlabored respiratory effort. Clear to auscultation bilaterally. No wheezes rales or rhonchi 6.GI: Soft, Nontender/Nondistended, No hepatosplenomegaly. No guarding or rebound. 7.MSK: Normocephalic/Atraumatic, Extremities w/o deformity or ttp No cyanosis or clubbing, Normal movement of all extremities 8.Skin: Warm, Dry. No rashes or lesions. 9.Neuro: s3b multi sensor operator II-XII grossly intact. Sensation grossly intact, no focal neurologic deficits. 10.Psych: (AAO) x3. Notably confrontational, refusing to answer many questions. Appears notably intoxicated.
--- NOTE | 2022-09-21 15:12 | CMPROGNOTE_ITS ---
- If Service Date Differs Date of service: 09/20/22 Time of Service: 14:30 Care Management Progress Note JIMBO speaks with Radha earlier in the day. He advises he is about to run out of his medications and no one will refill them for him. He called [facility] to begin the process of establishing care but states he was told it would be several weeks before he could see a provider. He says he also called [facility] and was told they couldn't help him. JIMBO telephones [facility] and speaks with Mara, hemodialysis patient care specialist. Mara confirms that she spoke with Radha and says they will not be able to refill his medications until he has established with them and they have obtained records from his previous prescriber in [place]. JIMBO then contacts [facility] to advocate for Radha getting an appointment with their psychiatrist. A little while later, Kacie of [facility] calls to say they were able to provide Radha with a 4:00 pm appointment with a med provider that afternoon. Shortly thereafter, JIMBO receives another call from Maximo of [facility]. They advise they spoke with Radha and he is planning on getting off of the [facility] shuttle at the hospital and coming to the emergency room, as he found being on the shuttle too stressful. They further request that CM meet with Radha and arrange transport from the hospital to [facility] in time for his 4:00 pm appointment. Radha is subsequently seen by hospital staff exiting the shuttle and walking down [address] accompanied by other individuals. JIMBO telephones Maximo of [facility] to let them know that Radha did take the shuttle to [facility] but did not enter the hospital. They then call Radha and eventually write a Warrant for Emergency Examination, as Radha reportedly threatens to kill himself while on the phone with them. He, unfortunately, does not attend the 4:00 pm appointment.
== END 2022-09-20 20:57 ==
LOC: ER 20:33
PROVIDERS: Emergency Provider Student in an Organized Health Care Education/Training Program
DX: R45.6 Violent behavior (principal); F10.129 Alcohol abuse with intoxication, unspecified; F32.A Depression, unspecified; R45.851 Suicidal ideations
CPT/HCPCS: 99285

== ENCOUNTER 2022-09-21 09:13 | Emergency (ER) | payer MEDICAID, SELFPAY ==
[2022-09-21 09:26] VITALS: BP 158/109; PULSE 80; O2SAT 97
--- NOTE | 2022-09-21 09:52 | ED.GENADUL_ITS ---
Discharge Plan Disposition Patient Disposition: Home Condition: Good Discharge Details Clinical Impression: Anxiety Primary Care Provider: Unknown,Unknown ED Provider: Evan Duran Home Meds and New Rx's Prescriptions: Continued clonidine HCl 0.1 mg Tablet 0.1 mg PO TID PRN (Reason: Anxiety) 14 Days Qty: 42 0RF gabapentin 400 mg Capsule 800 mg PO TID 14 Days Qty: 84 0RF omeprazole 40 mg Capsule,Delayed Release(Dr/Ec) 40 mg PO DAILY 14 Days Qty: 14 0RF Discharge Instructions Instructions: Anxiety (ED) Additional Instructions: Please take the medications as prescribed and follow-up with a primary care provider for further refills of your medications. If you have any new or worsen ing symptoms or further concerns feel free to return the emergency department for reassessment. It is very important that you make your follow-up appointment for your medication refills And further medication changes as there is been multiple missed appointments and offices are having difficulty with scheduling new patients. Referrals: [facility] [Outside] - 10/06/22 11:00 am Discharge Data Discharge Date/Time-TO BE ENTERED AT DEPARTURE: 09/21/22 11:18 Medical Decision Making Patient presenting to the emergency department for need of mental health evaluation. Patient [facility] due to being intoxicated yesterday evening. This morning he was deemed clinically sober and they sent him up here for mental health evaluation. Patient is denying any homicidal or suicidal ideations denies any medical complaints, patient is alert and oriented x4 acting appropriate for situation and is calm and cooperative but does seem a little anxious and agitated given the situation. He states that yesterday he had made some comments to the mental health provider in which they ended up writing him a warrant for emergency evaluation. He is requesting his medications be refilled due to having difficulty with getting into a provider but otherwise has no other complaints. Physical exam is unremarkable and I see no worrisome behavior. We will have patient evaluated by mental health. After mental health evaluation patient was deemed safe for discharge. We will discussed with patient represcribing medications on a very short-term one-time basis and mental health consular officer said they would email his med provider. Sign Out No HPI General Mode of arrival: ambulatory . Date/Time Provider Initiated Documentation: 09/21/22 09:13 . Limitations to Documentation: no limitations . Information obtained by: patient, RN notes reviewed and old records reviewed . History of Present Illness 41 year old M presents to the emergency department with the chief complaint of Mental health evaluation, Patient notes no other symptoms.. Patient did receive the following treatments prior to arrival, none Related Data Home Medications Medication Instructions Recorded Confirmed clonidine HCl 0.1 mg tablet 0.1 mg PO TID PRN Anxiety 2 weeks 09/21/22 #42 tabs gabapentin 400 mg capsule 800 mg PO TID 2 weeks #84 caps 09/21/22 omeprazole 40 mg capsule,delayed 40 mg PO DAILY 2 weeks #14 caps 09/21/22 release Previous Rx's Medication Instructions Recorded clonidine HCl 0.1 mg tablet 0.1 mg PO TID PRN Anxiety 2 weeks 09/21/22 #42 tabs gabapentin 400 mg capsule 800 mg PO TID 2 weeks #84 caps 09/21/22 omeprazole 40 mg capsule,delayed 40 mg PO DAILY 2 weeks #14 caps 09/21/22 release Allergies Allergy/AdvReac Type Severity Reaction Status Date / Time No Known Allergies Allergy Unverified 09/21/22 09:29 General Stated Complaint: PsychEval JENISE: 2 Review of Systems Constitutional Constitutional: Denies chills, Denies fever(s) and Denies headache(s) Eyes Eyes: Denies blurry vision ENT Ears, Nose, Mouth, and Throat: Denies dizziness and Denies headache(s) Cardiovascular Cardiovascular: Denies chest pain and Denies dyspnea Respiratory Respiratory: Denies dyspnea Gastrointestinal Gastrointestinal: Denies abdominal pain, Denies nausea and Denies vomiting Genitourinary Genitourinary: Denies oliguria Musculoskeletal Musculoskeletal: Reports system reviewed and no additional complaints, except as documented Integumentary/Breasts Skin/Breast: Denies rash Neurologic Neurologic: Denies dizziness and Denies headache(s) Psychiatric Psychiatric: Reports as per HPI, Denies depression, Denies visual connor lucinations, Denies hallucinations, Denies homicidal ideation and Denies suicidal ideation PFSH All Active Problems (Updated 09/21/22 @ 10:14 by Evan Duran NP) Alcohol intoxication (Acute) Anxiety (Chronic) Sciatica (Acute) Violent behavior (Acute) Depression (Chronic) Delusions (Acute) Suicidal ideation (Acute) Medical History Alcohol abuse Anxiety Chronic back pain Depression PTSD (post-traumatic stress disorder) Surgical History No significant past surgical history Social History Smoking/Tobacco Use Status: Current every day Tobacco Type: cigarettes Smoking risk assessment performed?: Yes Alcohol Intake: former Drug use: Never Substance use type: does not use Details: Denies Do you feel safe at home: Yes Do you feel safe in your relationship?: Yes Exam Const General: cooperative Orientation: alert, awake and oriented x3 Limitations: mental status not altered HENMT Head: normal to inspection, normocephalic and atraumatic Ears: hearing grossly normal bilaterally Mouth: moist mucous membranes Eyes General: appearance normal, both eyes and all related structures Pupils: PERRL EOM: EOM intact bilaterally Resp Effort & Inspection: normal respiratory effort, able to speak in complete sentences and no respiratory distress Auscultation: clear to auscultation bilaterally Cardio Rate: regular rate and not tachycardic Rhythm: regular rhythm Heart Sounds: S1 normal, S2 normal, no click, no gallops, no murmurs and no rubs Skin General skin exam: no rashes or lesions noted Neuro General: patient alert, patient awake, patient oriented x3, gait normal, moves all extremities and no focal motor deficits Cognition: normal cognition Speech: speech normal Sensory Exam: no sensory deficits noted Psych Mental Status: mental status grossly normal Speech and Movement: speech and movement normal and speech clear Mood: congruent mood Affect: normal affect and anxious affect Attitude: cooperative Thought Process: normal Thought Content: normal Course Vital Signs Vital signs: Vital Signs Pulse 80 09/21/22 09:26 Blood Pressure 158/109 H 09/21/22 09:26 Pulse Oximetry 97 09/21/22 09:26 Pulse 80 09/21/22 09:26 Respiratory Effort Non-Labored 09/21/22 09:30 Blood Pressure 158/109 H 09/21/22 09:26 Blood Pressure Position Sitting 09/21/22 09:26 Pulse Oximetry 97 09/21/22 09:26 Oxygen Delivery Method Room Air 09/21/22 09:26 Oxygen Flow Rate 0 09/21/22 09:26
--- NOTE | 2022-09-21 12:43 | PDOC.MHCN ---
Date of service: 09/21/22 Time of Service: 10:03 PHQ-9 Over the last 2 weeks, how often have you been bothered by any of the following problems? 1. Little interest or pleasure in doing things: not at all 2. Feeling down, depressed, or hopeless: not at all 3. Trouble falling or staying asleep, or sleeping too much: nearly every day 4. Feeling tired or having little energy: not at all 5. Poor appetite or overeating: not at all 6. Feeling bad about yourself - or that you are a failure or have let yourself and your family down: several days 7. Trouble concentrating on things, such as reading the newspaper or watching television: not at all 8. Moving or speaking so slowly that other people could have noticed? - Or the opposite - being so fidgety or restless that you have been moving around a lot more than usual: nearly every day 9. Thoughts that you would be better off or of hurting yourself in some way: several days Total score: 8 If you checked off any problems, how difficult have these problems made it for you to do your work, take care of things at home, or get along with other people?: very difficult Source: Developed by Drs. Richie Macdonald, Cydney Massey, Joshua Mcmahon and colleagues, with an educational hector from [employer]. Suicide Severity Rate CSSRS Have you wished you were or wished you could go to sleep and not wake up?: Yes Have you actually had any thoughts of killing yourself?: Yes CSSRS2 Have you been thinking about how you might do this?: No Have you had these thoughts and had some intention of acting on them?: No Have you started to work out or worked out the details of how to kill yourself? Do you intend to carry out this plan?: No CSSRS3 Have you ever done anything, started to do anything or prepared to do anything to end your life?: Yes CSSRS4 Was this within the past three months?: No Screening Score Total Score: 6 Screening: Positive Mental Health Emergency Note Release [facility] release signed:: Yes Reason for Visit Radha was sent to [facility] to be evaluated after he left corrections due to the mental health warrant that was written on 11.30.22. In the last 2 weeks has the pt presented for ES prior to today?: Yes, presented at (Yes, for suicidal ideation about a week and a half ago.) [facility] ED Client Information Client is: Adult Outpatient Well Housed: No,status: Not homeless, Unstable housing Non Suicidal Self Injury Current: No History: No Safety Risk/Harm to Self or Others Current Ideation to Harm Self or Others: No Risk: Does risk to harm exist?: No Risk: N/A Duty to warn indicated: No Asssessment/Mental Status Appearance: Unremarkable Attitude: Cooperative Behavior: Gait disturbances (Radha was confused on why he was at [facility].) Speech: Normal Affect: Cogruent with mood Mood: Stressed, Anxious and Irritable Thought process: Unremarkable Hallucinations: No evidence Delusions: No evidence Attention: Unremarkable Perception: Not impaired Orientation: Fully orientated Memory: Intact Insight: Good Judgement: Fair Neurovegetative Symptoms Sleep: No change (Depends on the night, Radha reports 'so so' sleep.) Appetitie: Increase Interests: No change Energy: No change Libido: Not applicable Substance Use: Do you use nicotine?: Yes Have you used substances in the last 7 days?: yes, Radha was [facility] to [facility] last night for being intoxicated. Additional Issues: Assaultive/Threatening Behavior: No Medical Concerns: No Client engaged in active self harm w/weapon: No Threatening to run away: No Child reported abuse/neglect: No Voluntarily presenting for services: Yes Domestic violence is a concern: No Extreme Psychosis or extreme behavior is present: No Impression Radha presented to the Emergency Room due to his interactions with [facility] clinicians yesterday. Yesterday he spoke to LUZ Bautista on the phone after not showing up to his med appointment and stated he was going to kill himself and she could watch it on the news. Radha reports he did not say that or at least he does not remember saying that. Radha states the last suicidal thought he had was in the emergency room and he has been in a good head space since. Radha's main concern is his medications at this time. Radha reports he does not want to and he actually has been looking forward to waking up in the morning. Radha currently has family visiting form [place] and reports they are great supports. Radha is showing good insight and fair judgment. Radha has improved since the recent interactions with [facility]. [facility] will work on getting him a medication appointment and continue to follow up with him while he is in the community. Resources Reosurces reviewed and given:: [facility] Plan/Disposition Recommended Disposition: PCP/Office visit and [facility] Services (Psychiatry appointemnt) [facility] Services: Other. Plan: Radha will be discharged home with a follow up appointment at [facility]. Radha will be seen by on 10/06 at 11am at the [facility] office. Person reported agreement to plan: Yes Reports/communication Outcome discussed with: ED/Personnel
--- NOTE | 2022-09-21 16:08 | CMPROGNOTE_ITS ---
- If Service Date Differs Date of service: 09/21/22 Time of Service: 16:08 Care Management Progress Note Radha presents in the ED this morning on a Warrant for Emergency Examination. He denies SI/HI, so a Physician's First Certification paperwork is not completed. JIMBO telephones [facility] and speaks with Milena Haywood to once again advocate for an appointment with a med provider on Radha's behalf. JIMBO is provided with an appointment for Radha with Dr. Vern Crespo on 10/06/2022 at 11:00 am. The po ointment date and time is shared with the ED provider so it can be included in Radha's discharge paperwork. JIMBO then meets with Radha to advise him of the appointment and to ensure he understands the importance of attending the 10/06/22 appointment, as [facility] is not likely to schedule another appointment with a med provider if he misses the appointment. Radha acknowledges his understanding.
== END 2022-09-21 11:18 | disposition home or self-care (01) ==
PROVIDERS: Emergency Provider Nurse Practitioner Family
DX: F41.9 Anxiety disorder, unspecified (principal)
CPT/HCPCS: 99283